=== PATIENT | male | born 1990 | race Caucasian/White ===

== ENCOUNTER 2019-03-04 22:40 | Emergency (ER) | payer SELFPAY ==
[2019-03-04 23:04] VITALS: BP 153/87
--- NOTE | 2019-03-04 23:25 | EDM.PDOC ---
ED HPI GENERAL MEDICAL PROBLEM - General Chief Complaint: Genitourinary Problem Stated Complaint: PT SPOKE TO NURSE Time Seen by Provider: 03/04/19 23:25 Source of Information: Reports: Patient - History of Present Illness INITIAL COMMENTS - FREE TEXT/NARRATIVE: HISTORY AND PHYSICAL: History of present illness: [ Patient presents with blood post ejaculation, is not necessarily have any pain associated however blood remains in urine for several episodes of urination post sexual activity is one patient notices ana rosa blood in the urine As a secondary complaint of a needle poke from a known drug user, he states he was staying out of an apartment in cleaning up the apartment in [place], there is a known drug abuser in the home and while cleaning a bathroom he was stuck with a needle, he was wondering if this may contribute to the blood in his urine. Hence we have added HIV and hepatitis testing Review of systems: As per history of present illness and below otherwise all systems reviewed and negative. Past medical history: As per history of present illness and as reviewed below otherwise noncontributory. Surgical history: As per history of present illness and as reviewed below otherwise noncontributory. Social history: No reported history of drug or alcohol abuse. Family history: As per history of present illness and as reviewed below otherwise noncontributory. Physical exam: HEENT: Atraumatic, normocephalic, pupils reactive, negative for conjunctival pallor or scleral icterus, mucous membranes moist, throat clear, neck supple, nontender, trachea midline. Lungs: Clear to auscultation, breath sounds equal bilaterally, chest nontender. Heart: S1S2, regular, negative for clicks, rubs, or JVD. Abdomen: Soft, nondistended, nontender. Negative for masses or hepatosplenomegaly. Negative for costovertebral tenderness. Pelvis: Stable nontender. Genitourinary: Deferred. Rectal: Deferred. Extremities: Atraumatic, negative for cords or calf pain. Neurovascular unremarkable. Neuro: Awake, alert, oriented. Cranial nerves II through XII unremarkable. Cerebellum unremarkable. Motor and sensory unremarkable throughout. Exam nonfocal. Diagnostics: [CBC BMP UA HIV and hepatitis panel ] Therapeutics: [Gram Rocephin IM Azithromycin ] gram by mouth Impression: [ hematuria ] Definitive disposition and diagnosis as appropriate pending reevaluation and review of above. - Related Data Allergies Allergy/AdvReac Type Severity Reaction Status Date / Time No Known Allergies Allergy Verified 03/04/19 22:41 Home Meds: Home Meds . [No Known Home Meds] 11/13/14 [History] Past Medical History - Past Health History Medical/Surgical History: Denies Medical/Surgical History Social & Family History - Family History Family Medical History: Noncontributory - Tobacco Use Smoking Status *Q: Current Every Day Smoker Years of Tobacco use: 10 Packs/Tins Daily: 1 - Recreational Drug Use Recreational Drug Use: No ED ROS GENERAL - Review of Systems Review Of Systems: See Below ED EXAM, GENERAL - Physical Exam Exam: See Below Course - Vital Signs Last Recorded V/S: Last Vital Signs Temp 97 F 03/04/19 22:40 Pulse 97 03/04/19 22:40 Resp 18 03/04/19 22:40 BP 153/87 H 03/04/19 22:40 Pulse Ox 96 03/04/19 22:40 - Orders/Labs/Meds Orders: Active Orders 24 hr Category Date Time Status CHLAMYDIA AND GONORRHEA BY TMA Stat Lab 03/04/19 22:55 Received HEPATITIS PANEL (4) [REF] Stat Lab 03/04/19 23:33 Received HIV12 AG/AB 4TH GEN [CHEM] Stat Lab 03/04/19 23:33 Received PSA DIAGNOSTIC [CHEM] Stat Lab 03/04/19 23:33 Received Labs: Laboratory Tests 03/04/19 03/04/19 03/04/19 Range/Units 22:55 23:33 23:33 WBC 12.50 H (4.0-11.0) K/uL RBC 5.50 (4.50-5.90) M/uL Hgb 15.7 (13.0-17.0) g/dL Hct 45.9 (38.0-50.0) % MCV 83.5 (80.0-98.0) fL MCH 28.5 (27.0-32.0) pg MCHC 34.2 (31.0-37.0) g/dL RDW Std Deviation 41.1 (28.0-62.0) fl RDW Coeff of Tammy 14 (11.0-15.0) % Plt Count 376 (150-400) K/uL MPV 9.00 (7.40-12.00) fL Neut % (Auto) 61.2 (48.0-80.0) % Lymph % (Auto) 26.2 (16.0-40.0) % Wolfe % (Auto) 7.0 (0.0-15.0) % Eos % (Auto) 5.1 (0.0-7.0) % Baso % (Auto) 0.5 (0.0-1.5) % Neut # (Auto) 7.7 H (1.4-5.7) K/uL Lymph # (Auto) 3.3 H (0.6-2.4) K/uL Wolfe # (Auto) 0.9 H (0.0-0.8) K/uL Eos # (Auto) 0.6 (0.0-0.7) K/uL Baso # (Auto) 0.1 (0.0-0.1) K/uL Nucleated RBC % 0.0 /100WBC Nucleated RBCs # 0 K/uL Sodium 139 (136-148) mmol/L Potassium 4.1 (3.5-5.1) mmol/L Chloride 103 (98-107) mmol/L Carbon Dioxide 28.9 (21.0-32.0) mmol/L BUN 12 (7.0-18.0) mg/dL Creatinine 1.0 (0.8-1.3) mg/dL Est Cr Clr Drug Dosing 124.29 mL/min Estimated GFR (MDRD) > 60.0 ml/min Glucose 119 H (74-106) mg/dL Calcium 9.3 (8.5-10.1) mg/dL Urine Color DARK YELLOW Urine Appearance CLOUDY Urine pH 6.0 (5.0-8.0) Ur Specific Kyle >= 1.030 (1.001-1.035) Urine Protein TRACE H (NEGATIVE) mg/dL Urine Glucose (UA) NEGATIVE (NEGATIVE) mg/dL Urine Ketones NEGATIVE (NEGATIVE) mg/dL Urine Occult Blood LARGE H (NEGATIVE) Urine Nitrite NEGATIVE (NEGATIVE) Urine Bilirubin NEGATIVE (NEGATIVE) Urine Urobilinogen 0.2 (<2.0) EU/dL Ur Leukocyte Esterase NEGATIVE (NEGATIVE) Urine RBC >100 (0-2/HPF) Urine WBC 1-2 (0-5/HPF) Ur Epithelial Cells RARE (NONE-FEW) Urine Bacteria 1+ H (NEGATIVE) Urine Mucus LIGHT (NONE-MOD) Meds: Medications Discontinued Medications Generic Name Dose Route Start Last Admin Trade Name eRna PRN Reason Stop Dose Admin Azithromycin 1,000 mg 03/04/19 23:39 03/04/19 23:47 Zithromax PO 03/04/19 23:40 1,000 mg NOW STA Administration Ceftriaxone Sodium 1 gm 03/04/19 23:39 03/04/19 23:48 Rocephin IM 03/04/19 23:40 1 gm ONETIME ONE Administration Lidocaine HCl Confirm 03/04/19 23:44 03/04/19 23:48 Xylocaine-Mpf 1% Administered 03/04/19 23:45 2.1 mls/hr Dose Administration 2 mls @ as directed .ROUTE .STK-MED ONE Departure - Departure Time of Disposition: 00:39 Disposition: Home, Self-Care 01 Condition: Good Clinical Impression: Hematuria - Discharge Information Referrals: PCP,None [Primary Care Provider] - Forms: ED Department Discharge Additional Instructions: Infectious labs are pending at this time and will need to be followed Return if symptoms persist or worsen or if new concerning symptoms develop Follow-up with urology, call phone number below to schedule appropriate follow- up [facility] - Urology [address] [place] [address] In the interim primary care remains a resource for interim care [facility] - Primary Care [address] [place] [address] The following information is given to patients seen in the emergency department who are being discharged to home. This information is to outline your options for follow-up care. We provide all patients seen in our emergency department with a follow-up referral. The need for follow-up, as well as the timing and circumstances, are variable depending upon the specifics of your emergency department visit. If you don't have a primary care physician on staff, we will provide you with a referral. We always advise you to contact your personal physician following an emergency department visit to inform them of the circumstance of the visit and for follow-up with them and/or the need for any referrals to a consulting specialist. The emergency department will also refer you to a specialist when appropriate. This referral assures that you have the opportunity for follow-up care with a specialist. All of these measure are taken in an effort to provide you with optimal care, which includes your follow-up. Under all circumstances we always encourage you to contact your private physician who remains a resource for coordinating your care. When calling for follow-up care, please make the office aware that this follow-up is from your recent emergency room visit. If for any reason you are refused follow-up, please contact the [facility] emergency department at and asked to speak to the emergency department charge nurse. - My Orders Last 24 Hours: My Active Orders 03/04/19 22:55 CHLAMYDIA AND GONORRHEA BY TMA Stat 03/04/19 23:33 HEPATITIS PANEL (4) [REF] Stat HIV12 AG/AB 4TH GEN [CHEM] Stat PSA DIAGNOSTIC [CHEM] Stat - Assessment/Plan Last 24 Hours: My Active Orders 03/04/19 22:55 CHLAMYDIA AND GONORRHEA BY TMA Stat 03/04/19 23:33 HEPATITIS PANEL (4) [REF] Stat HIV12 AG/AB 4TH GEN [CHEM] Stat PSA DIAGNOSTIC [CHEM] Stat
[2019-03-04] MEDS ORDERED: Azithromycin 250 MG Tab PO STA (23:39)
[2019-03-04] MEDS ORDERED: cefTRIAXone 1 GM Vial IM ONE (23:39)
[2019-03-04] MEDS ORDERED: Lidocaine 1% 2 ML ONE (23:44)
[2019-03-04 23:54] LABS: CHLORIDE,CL 103 mmol/L (98-107); SODIUM,NA 139 mmol/L (136-148)
--- NOTE | 2019-03-05 00:27 | US ---
INDICATION: Hematuria TECHNIQUE: Ultrasound renal bilateral. Villeda scale and color Doppler sonographic images were acquired of the kidneys and urinary bladder. COMPARISON: None FINDINGS: Right kidney: 11.3 3 cm. Normal echotexture and cortex. No masses, stones, or hydronephrosis. Left kidney: 13.0 cm. Normal echotexture and cortex. No masses, stones, or hydronephrosis. Bladder: Normal in caliber and appearance. Color Doppler images demonstrate bilateral ureteral jets. IMPRESSION: Normal renal ultrasound. Dictated by Donald Carrillo MD @ 03/05/2019 12:25:26 AM Dictated by: Donald Carrillo MD @ 03/05/2019 00:25:31 (Electronically Signed)
== END 2019-03-05 00:48 | disposition home or self-care (01) ==
LOC: MW.ED 22:40
DX: R31.9 Hematuria, unspecified (principal); F17.210 Nicotine dependence, cigarettes, uncomplicated
CPT/HCPCS: 36415; 76775; 80048; 81001; 84153; 85025; 87389; 87491; 87591; 96372; 99284; A9270; J0696; J2001; 80074

== ENCOUNTER 2019-06-04 21:08 | Emergency (ER) | payer SELFPAY ==
--- NOTE | 2019-06-04 21:24 | EDM.PDOC ---
ED HPI GENERAL MEDICAL PROBLEM - General Chief Complaint: Skin Complaint Stated Complaint: PT HANDS SWOLLEN Time Seen by Provider: 06/04/19 21:24 Source of Information: Reports: Patient History Limitations: Reports: No Limitations - History of Present Illness INITIAL COMMENTS - FREE TEXT/NARRATIVE: HISTORY AND PHYSICAL: History of present illness: Patient is a 28-year-old male presents to the ED with complaint of pain and swelling of his right middle finger and left pinky finger x 2 days. 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 Review of systems: As per history of present illness and below otherwise all systems reviewed and negative. Past medical history: As per history of present illness and as reviewed below otherwise noncontributory. Surgical history: As per history of present illness and as reviewed below otherwise noncontributory. Social history: No reported history of drug or alcohol abuse. Family history: As per history of present illness and as reviewed below otherwise noncontributory. Physical exam: General: Patient sitting comfortably in no acute distress and nontoxic appearing HEENT: Atraumatic, normocephalic, pupils reactive, negative for conjunctival pallor or scleral icterus, mucous membranes moist, throat clear, neck supple, nontender, trachea midline. No meningeal signs. Lungs: Clear to auscultation, breath sounds equal bilaterally, chest nontender. Heart: S1S2, regular, negative for clicks, rubs, or overt murmur. Abdomen: Soft, nondistended, nontender. Negative for masses or hepatosplenomegaly. Negative for costovertebral tenderness. No rigidity, rebound , guarding. Pelvis: Stable nontender. Genitourinary: Deferred. Rectal: Deferred. Extremities: Atraumatic, negative for cords or calf pain. Neurovascular unremarkable. Neuro: Awake, alert, oriented. Cranial nerves II through XII unremarkable. Cerebellum unremarkable. Motor and sensory unremarkable throughout. Exam nonfocal. Notes: Diagnostics: x-ray fingers Therapeutics: 30mg Toradol IM Prescriptions: Keflex Impression: Cellulitis finger Plan: Take antibiotic as instructed Follow up with primary care provider Return to ED as needed as discussed Definitive disposition and diagnosis as appropriate pending reevaluation and review of above. both hands Pain Score (Numeric/FACES): 10 - Related Data Allergies Allergy/AdvReac Type Severity Reaction Status Date / Time No Known Allergies Allergy Verified 03/04/19 22:41 Home Meds: Home Meds Diclofenac Sodium [Voltaren] 75 mg PO BIDMEALS 10 Days #20 tab.cr 06/04/19 [Rx] cephALEXin [Keflex] 500 mg PO TID 10 Days #30 cap 06/04/19 [Rx] Past Medical History - Past Health History Medical/Surgical History: Denies Medical/Surgical History - Past Surgical History GI Surgical History: Reports: Appendectomy Social & Family History - Family History Family Medical History: Noncontributory - Tobacco Use Smoking Status *Q: Current Every Day Smoker Years of Tobacco use: 15 Packs/Tins Daily: 0.5 - Recreational Drug Use Recreational Drug Use: No ED ROS GENERAL - Review of Systems Review Of Systems: ROS reveals no pertinent complaints other than HPI. ED EXAM, SKIN/RASH Exam: See Below (see dictation) Course - Vital Signs Last Recorded V/S: Last Vital Signs Temp 98.2 F 06/04/19 21:17 Pulse 78 06/04/19 21:17 Resp 16 06/04/19 21:17 BP 168/111 H 06/04/19 21:17 Pulse Ox 96 06/04/19 21:17 - Orders/Labs/Meds Meds: Medications Discontinued Medications Generic Name Dose Route Start Last Admin Trade Name Rena PRN Reason Stop Dose Admin Ketorolac Tromethamine 60 mg 06/04/19 21:55 06/04/19 22:13 Toradol IM 06/04/19 21:56 60 mg ONETIME ONE Administration Departure - Departure Time of Disposition: 22:08 Disposition: Home, Self-Care 01 Condition: Good Clinical Impression: Cellulitis of finger - Discharge Information Prescriptions: cephALEXin [Keflex] 500 mg PO TID 10 Days #30 cap Diclofenac Sodium [Voltaren] 75 mg PO BIDMEALS 10 Days #20 tab.cr Instructions: Cellulitis, Adult, [id number] Referrals: PCP,None [Primary Care Provider] - Forms: ED Department Discharge Additional Instructions: The following information is given to patients seen in the emergency department who are being discharged to home. This information is to outline your options for follow-up care. We provide all patients seen in our emergency department with a follow-up referral. The need for follow-up, as well as the timing and circumstances, are variable depending upon the specifics of your emergency department visit. If you don't have a primary care physician on staff, we will provide you with a referral. We always advise you to contact your personal physician following an emergency department visit to inform them of the circumstance of the visit and for follow-up with them and/or the need for any referrals to a consulting specialist. The emergency department will also refer you to a specialist when appropriate. This referral assures that you have the opportunity for follow-up care with a specialist. All of these measure are taken in an effort to provide you with optimal care, which includes your follow-up. Under all circumstances we always encourage you to contact your private physician who remains a resource for coordinating your care. When calling for follow-up care, please make the office aware that this follow-up is from your recent emergency room visit. If for any reason you are refused follow-up, please contact the Emergency Department at and asked to speak to the emergency department charge nurse. Primary Care [address] [place] [id number] [place] [address] Take antibiotic as instructed Follow up with primary care provider Return to ED as needed as discussed
--- NOTE | 2019-06-04 21:54 | CR ---
INDICATION: Left 3rd digit. Possible metal foreign body. TECHNIQUE: Finger radiographs 3 views COMPARISON: None FINDINGS: Bones: Alignment is normal. No acute fractures or aggressive bone lesions are identified. Joint spaces: The metacarpophalangeal and interphalangeal joints are normal in appearance. Soft tissues: Unremarkable. No radiopaque foreign bodies are noted. IMPRESSION: 1. Left 3rd digit, no radiopaque foreign body identified. Dictated by Flaco Martinez MD @ 06/04/2019 9:52:51 PM Dictated by: Flaco Martinez MD @ 06/04/2019 21:52:59 (Electronically Signed)
[2019-06-04] MEDS ORDERED: Ketorolac 60 MG/2 ML SDV IM ONE (21:55)
--- NOTE | 2019-06-04 21:56 | CR ---
INDICATION: Possible metal foreign body. Right 5th digit. TECHNIQUE: Finger radiographs 3 views COMPARISON: None FINDINGS: Bones: Alignment is normal. No acute fractures or aggressive bone lesions are identified. Joint spaces: The metacarpophalangeal and interphalangeal joints are normal in appearance. Soft tissues: Unremarkable. No radiopaque foreign bodies are noted. IMPRESSION: 1. Right 5th digit, no acute osseous injury. No foreign body identified. Dictated by Flaco Martinez MD @ 06/04/2019 9:55:02 PM Dictated by: Flaco Martinez MD @ 06/04/2019 21:55:07 (Electronically Signed)
[2019-06-04 23:16] VITALS: BP 163/90
== END 2019-06-04 22:29 | disposition home or self-care (01) ==
LOC: MW.ED 21:08
DX: L03.012 Cellulitis of left finger (principal); L03.011 Cellulitis of right finger; F17.210 Nicotine dependence, cigarettes, uncomplicated; Z90.49 Acquired absence of other specified parts of digestive tract
CPT/HCPCS: 73140; 96372; 99283; J1885

== ENCOUNTER 2019-07-10 10:59 | Emergency (ER) | payer BC ==
[2019-07-10 12:41] VITALS: PULSE 100
--- NOTE | 2019-07-10 13:07 | EDM.PDOC ---
ED HPI GENERAL MEDICAL PROBLEM - General Chief Complaint: Upper Extremity Injury/Pain Stated Complaint: LT ARM COMPLAINT Time Seen by Provider: 07/10/19 12:12 Source of Information: Reports: Patient History Limitations: Reports: No Limitations - History of Present Illness INITIAL COMMENTS - FREE TEXT/NARRATIVE: History of present illness: []Patient has a history of cellulitic infections of his right upper extremity. 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 He denies any fevers, chills but noticed redness over his left forearm. Review of systems: As per history of present illness and below otherwise all systems reviewed and negative. Past medical history: As per history of present illness and as reviewed below otherwise noncontributory. Surgical history: As per history of present illness and as reviewed below otherwise noncontributory. Social history: No reported history of drug or alcohol abuse. Family history: As per history of present illness and as reviewed below otherwise noncontributory. Physical exam: General: Well developed, well nourished in NAD HEENT: Atraumatic, normocephalic, pupils reactive, negative for conjunctival pallor or scleral icterus, mucous membranes moist, throat clear, neck supple, nontender, trachea midline. Lungs: Clear to auscultation, breath sounds equal bilaterally, chest nontender. Heart: S1S2, regular, negative for clicks, rubs, or JVD. Abdomen: NABS, Soft, nondistended, nontender. Negative for masses or hepatosplenomegaly. Negative for costovertebral tenderness. Pelvis: Stable nontender. Genitourinary: Deferred. Rectal: Deferred. Extremities: Patient has erythema and induration of the volar part of his distal forearm mild tenderness no fluctuance is no open lesions noted., negative for cords or calf pain. Neurovascular unremarkable. Neuro: Awake, alert, oriented. Cranial nerves II through XII unremarkable. Cerebellum unremarkable. Motor and sensory unremarkable throughout. Exam nonfocal. Skin:warm and dry Diagnostics: X-ray left forearm Therapeutics: None ED Course: sTable Impression: Cellulitis left forearm Prescriptions: Keflex Plan: Take meds as directed, follow up with your primary care physician, return to ER if symptoms worsen or change. Definitive disposition and diagnosis as appropriate pending reevaluation and review of above. Left Wrist Pain Score (Numeric/FACES): 4 - Related Data Allergies Allergy/AdvReac Type Severity Reaction Status Date / Time No Known Allergies Allergy Verified 07/10/19 12:37 Home Meds: Home Meds Cephalexin [Keflex] 500 mg PO TID #30 capsule 07/10/19 [Rx] Past Medical History - Past Health History Medical/Surgical History: Denies Medical/Surgical History - Infectious Disease History Infectious Disease History: Reports: None - Past Surgical History GI Surgical History: Reports: Appendectomy Social & Family History - Family History Family Medical History: Noncontributory - Tobacco Use Smoking Status *Q: Current Every Day Smoker Years of Tobacco use: 25 Packs/Tins Daily: 1 - Caffeine Use Caffeine Use: Reports: Coffee - Recreational Drug Use Recreational Drug Use: No Review of Systems - Review of Systems Review Of Systems: See Below ED EXAM, GENERAL - Physical Exam Exam: See Below Course - Vital Signs Last Recorded V/S: Last Vital Signs Temp 98 F 07/10/19 12:38 Pulse 100 07/10/19 12:38 Resp 16 07/10/19 12:38 BP 138/87 07/10/19 12:38 Pulse Ox 98 07/10/19 12:38 - Orders/Labs/Meds Orders: Active Orders 24 hr Category Date Time Status Forearm 2V Lt [CR] Stat Exams 07/10/19 12:42 Ordered Departure - Departure Time of Disposition: 13:05 Disposition: Home, Self-Care 01 Condition: Good Clinical Impression: Cellulitis of left forearm - Discharge Information *PRESCRIPTION DRUG MONITORING PROGRAM REVIEWED*: No *COPY OF PRESCRIPTION DRUG MONITORING REPORT IN PATIENT AISHWARYA: No Prescriptions: Cephalexin [Keflex] 500 mg PO TID #30 capsule Referrals: PCP,Unknown [Primary Care Provider] - Additional Instructions: The following information is given to patients seen in the emergency department who are being discharged to home. This information is to outline your options for follow-up care. We provide all patients seen in our emergency department with a follow-up referral. The need for follow-up, as well as the timing and circumstances, are variable depending upon the specifics of your emergency department visit. If you don't have a primary care physician on staff, we will provide you with a referral. We always advise you to contact your personal physician following an emergency department visit to inform them of the circumstance of the visit and for follow-up with them and/or the need for any referrals to a consulting specialist. The emergency department will also refer you to a specialist when appropriate. This referral assures that you have the opportunity for follow-up care with a specialist. All of these measure are taken in an effort to provide you with optimal care, which includes your follow-up. Under all circumstances we always encourage you to contact your private physician who remains a resource for coordinating your care. When calling for follow-up care, please make the office aware that this follow-up is from your recent emergency room visit. If for any reason you are refused follow-up, please contact the [facility] Emergency Department at and asked to speak to the emergency department charge nurse. Take meds as directed, follow up with your primary care physician, return to ER if symptoms worsen or change. [facility] Primary Care [address] [place] [id number] - My Orders Last 24 Hours: My Active Orders 07/10/19 12:42 Forearm 2V Lt [CR] Stat - Assessment/Plan Last 24 Hours: My Active Orders 07/10/19 12:42 Forearm 2V Lt [CR] Stat
[2019-07-10 13:28] VITALS: BP 148/85
--- NOTE | 2019-07-10 13:35 | CR ---
Left forearm: Two views of the left forearm were obtained. Comparison: No previous forearm study. Soft tissue swelling is seen within the forearm. No acute fracture or other bony abnormality is seen. Impression: Soft tissue swelling. No bony abnormality is appreciated on two- view left forearm study. Diagnostic code #3 [id number]
== END 2019-07-10 13:26 | disposition home or self-care (01) ==
LOC: MW.ED 10:59
DX: L03.114 Cellulitis of left upper limb (principal); F17.200 Nicotine dependence, unspecified, uncomplicated
CPT/HCPCS: 73090-26-LT; 73090-LT; 99283; 99283-25

== ENCOUNTER 2019-07-26 15:49 | Emergency (ER) | payer BC ==
--- NOTE | 2019-07-26 15:57 | EDM.PDOC ---
ED HPI GENERAL MEDICAL PROBLEM - General Chief Complaint: ENT Problem Stated Complaint: SORE THROAT Time Seen by Provider: 07/26/19 15:56 Source of Information: Reports: Patient - History of Present Illness INITIAL COMMENTS - FREE TEXT/NARRATIVE: HISTORY AND PHYSICAL: History of present illness: [Patient presents with sore throat for 2 days intermittent fever and myalgias/ general malaise no nausea vomiting chills sweats no cough Awful voice drooling or trismus ] Review of systems: As per history of present illness and below otherwise all systems reviewed and negative. Past medical history: As per history of present illness and as reviewed below otherwise noncontributory. Surgical history: As per history of present illness and as reviewed below otherwise noncontributory. Social history: No reported history of drug or alcohol abuse. Family history: As per history of present illness and as reviewed below otherwise noncontributory. Physical exam: HEENT: Atraumatic, normocephalic, pupils reactive, negative for conjunctival pallor or scleral icterus, mucous membranes moist, throat clear, neck supple, nontender, trachea midline. uttered erythema with exudates tonsils 3+ Lungs: Clear to auscultation, breath sounds equal bilaterally, chest nontender. Heart: S1S2, regular, negative for clicks, rubs, or JVD. Abdomen: Soft, nondistended, nontender. Negative for masses or hepatosplenomegaly. Negative for costovertebral tenderness. Pelvis: Stable nontender. Genitourinary: Deferred. Rectal: Deferred. Extremities: Atraumatic, negative for cords or calf pain. Neurovascular unremarkable. Neuro: Awake, alert, oriented. Cranial nerves II through XII unremarkable. Cerebellum unremarkable. Motor and sensory unremarkable throughout. Exam nonfocal. Diagnostics: [Rapid strep] Therapeutics: [Normal saline 1 g Rocephin Solu-Medrol 125 mg IV Viscous lidocaine ] Impression phARYNGITIS//tonsillitis ] Definitive disposition and diagnosis as appropriate pending reevaluation and review of above. Throat Pain Score (Numeric/FACES): 9 - Related Data Allergies Allergy/AdvReac Type Severity Reaction Status Date / Time No Known Allergies Allergy Verified 07/26/19 16:00 Home Meds: Home Meds . [No Known Home Meds] 07/26/19 [History] Past Medical History - Past Health History Medical/Surgical History: Denies Medical/Surgical History - Infectious Disease History Infectious Disease History: Reports: None - Past Surgical History GI Surgical History: Reports: Appendectomy Social & Family History - Family History Family Medical History: Noncontributory - Caffeine Use Caffeine Use: Reports: Coffee ED ROS GENERAL - Review of Systems Review Of Systems: See Below ED EXAM, GENERAL - Physical Exam Exam: See Below Course - Vital Signs Last Recorded V/S: Last Vital Signs Temp 100.1 F 07/26/19 16:01 Pulse 109 H 07/26/19 16:01 Resp 21 H 07/26/19 16:01 BP 151/80 H 07/26/19 16:01 Pulse Ox 100 07/26/19 16:01 - Orders/Labs/Meds Orders: Active Orders 24 hr Category Date Time Status Sodium Chloride 0.9% [Normal Saline] 1,000 ml Med 07/26/19 16:16 Active IV STAT cefTRIAXone [Rocephin in Dextrose,Iso-Osm 1 GM/50 ML] 1 Med 07/26/19 16:16 Active gm Premix Bag 1 bag IV ONETIME Medication Orders Ceftriaxone Sodium/Dextrose 1 (gm/ Premix) 50 mls @ 100 mls/hr IV ONETIME ONE Stop: 07/26/19 16:45 Sodium Chloride (Normal Saline) 1,000 mls @ 999 mls/hr IV STAT ONE Stop: 07/26/19 17:16 Meds: Medications Generic Name Dose Route Start Last Admin Trade Name Freq PRN Reason Stop Dose Admin Ceftriaxone Sodium/Dextrose 1 50 mls @ 100 mls/hr 07/26/19 16:16 gm/ Premix IV 07/26/19 16:45 ONETIME ONE Sodium Chloride 1,000 mls @ 999 mls/hr 07/26/19 16:16 Normal Saline IV 07/26/19 17:16 STAT ONE Discontinued Medications Generic Name Dose Route Start Last Admin Trade Name Freq PRN Reason Stop Dose Admin Lidocaine HCl 15 ml 07/26/19 16:16 Xylocaine 2% Viscous PO 07/26/19 16:17 ONETIME ONE Methylprednisolone Sodium Succinate 125 mg 07/26/19 16:16 Solu-Medrol IVPUSH 07/26/19 16:17 ONETIME ONE Departure - Departure Time of Disposition: 16:30 Disposition: Home, Self-Care 01 Condition: Good Clinical Impression: Tonsillitis - Discharge Information Referrals: PCP,None [Primary Care Provider] - Forms: ED Department Discharge Additional Instructions: Medication as prescribed Return if symptoms persist or worsen despite treatment Follow-up with primary care in 2 weeks [facility] - [facility] [address] [place] [id number] The following information is given to patients seen in the emergency department who are being discharged to home. This information is to outline your options for follow-up care. We provide all patients seen in our emergency department with a follow-up referral. The need for follow-up, as well as the timing and circumstances, are variable depending upon the specifics of your emergency department visit. If you don't have a primary care physician on staff, we will provide you with a referral. We always advise you to contact your personal physician following an emergency department visit to inform them of the circumstance of the visit and for follow-up with them and/or the need for any referrals to a consulting specialist. The emergency department will also refer you to a specialist when appropriate. This referral assures that you have the opportunity for follow-up care with a specialist. All of these measure are taken in an effort to provide you with optimal care, which includes your follow-up. Under all circumstances we always encourage you to contact your private physician who remains a resource for coordinating your care. When calling for follow-up care, please make the office aware that this follow-up is from your recent emergency room visit. If for any reason you are refused follow-up, please contact the [facility] emergency department at and asked to speak to the emergency department charge nurse. - My Orders Last 24 Hours: My Active Orders 07/26/19 16:16 Sodium Chloride 0.9% [Normal Saline] 1,000 ml IV STAT cefTRIAXone [Rocephin in Dextrose,Iso-Osm 1 GM/50 ML] 1 gm Premix Bag 1 bag IV ONETIME - Assessment/Plan Last 24 Hours: My Active Orders 07/26/19 16:16 Sodium Chloride 0.9% [Normal Saline] 1,000 ml IV STAT cefTRIAXone [Rocephin in Dextrose,Iso-Osm 1 GM/50 ML] 1 gm Premix Bag 1 bag IV ONETIME
[2019-07-26] MEDS ORDERED: Lidocaine 2% Viscous Solution 15 ML Cup PO ONE (16:16)
[2019-07-26] MEDS ORDERED: methylPREDNISolone Sodium Succinate 125 MG/2 ML SDV IVPUSH ONE (16:16)
[2019-07-26] MEDS ORDERED: cefTRIAXone 1 GM in Premix Bag 1 BAG IV ONE (16:16)
[2019-07-26] MEDS ORDERED: Sodium Chloride 0.9% 1,000 ML IV ONE (16:16)
[2019-07-26 17:32] VITALS: BP 146/78; PULSE 107
== END 2019-07-26 17:31 | disposition home or self-care (01) ==
LOC: MW.ED 15:49
DX: J02.9 Acute pharyngitis, unspecified (principal)
CPT/HCPCS: 87880; 96365; 96375; 99283; A9270; J0696; J2930; J7040

== ENCOUNTER 2019-12-26 08:45 | Emergency (ER) | payer BC ==
[2019-12-26] MEDS ORDERED: fentaNYL 50 MCG/ML SDV IVPUSH ONE (08:50)
[2019-12-26] MEDS ORDERED: Sodium Chloride 0.9% 2.5 ML Syringe FLUSH PRN (09:00)
[2019-12-26] MEDS ORDERED: Sodium Chloride 0.9% 10 ML Syringe FLUSH PRN (09:00)
--- NOTE | 2019-12-26 09:03 | EDM.PDOC ---
ED HPI GENERAL MEDICAL PROBLEM - General Chief Complaint: Drug or Alcohol Abuse Stated Complaint: OD BROUGHT IN VIA AMBULANCE Time Seen by Provider: 12/26/19 09:03 Source of Information: Reports: EMS History Limitations: Reports: Altered Mental Status - History of Present Illness INITIAL COMMENTS - FREE TEXT/NARRATIVE: This 29 year old male with known meth use was found in his garage this morning unresponsive and cold with dilated pupils according to the EMT's. He was given a total of 12mg of Narcan with no response. He was last seen normal last night. The patient was thrashing about on arrival to the ED. He was intubated with the aid of a GlideScope using a 8mm ET tube. See intubation note. I was not able to obtain any history from the patient due to his mental status and intubation. Onset: Today Duration: Other (unknown) - Related Data Allergies Allergy/AdvReac Type Severity Reaction Status Date / Time No Known Allergies Allergy Verified 07/26/19 16:00 Home Meds: Home Meds . [No Known Home Meds] 07/26/19 [History] Past Medical History - Past Health History Medical/Surgical History: Denies Medical/Surgical History - Infectious Disease History Infectious Disease History: Reports: None - Past Surgical History GI Surgical History: Reports: Appendectomy Social & Family History - Family History Family Medical History: Noncontributory - Caffeine Use Caffeine Use: Reports: Coffee ED ROS GENERAL - Review of Systems Review Of Systems: Unable To Obtain Reason Not Obtained: Unable to obtain due to AMS and intubation - Physical Exam Exam: See Below Exam Limited By: Altered Mental Status (and intubation) General Appearance: Obtunded Eye Exam: Bilateral Eye: EOMI (unable to check due to intubation), Normal Fundi , PERRL (dilated to 6.5mm and not reactive to light) Ears: Normal External Exam, Normal Canal, Hearing Grossly Normal, Normal TMs Nose: Normal Inspection, Normal Mucosa, No Blood Throat/Mouth: Normal Inspection, Normal Lips, Normal Oropharynx (except for secretions), Other (airway is compromised) Head Exam: Atraumatic, Normocephalic Neck: Normal Inspection, Supple (unable to access due to AMS and Intubation) Respiratory/Chest: Respiratory Distress, Decreased Breath Sounds (right base with rhonchi) Cardiovascular: Normal Peripheral Pulses, No Edema, No JVD, No Murmur, Tachycardia (132 by ECG) GI/Abdominal: Normal Bowel Sounds, Soft, No Distention, No Abnormal Bruit, No Mass (Male) Exam: Deferred Rectal (Males) Exam: Deferred Neuro Exam (Abbreviated): Other (intubated) DTR: 2+: Patella (R), Patella (L) Back Exam: Normal Inspection Extremities: Normal Inspection (but all limbs are cool) Psychiatric: Other (intubated) Skin Exam: Cool (cold), Cyanosis (of upper and lower limbs) Endotracheal Intubation - Endotracheal Intubation ET Intubation Indication: Airway Protection Preparation: Suction, BVM Set Up Airway Assessment: Profuse Secretions Pre-Oxygenation: Assisted with BVM, 100% FiO2 Anesthesia Meds: Etomidate (20mg), Fentanyl (50mcg), Midazolam, Propofol (50mg bolus followed by drip), Rocuronium (190mg), Succinylcholine (100mg) Placement: Orotracheal Cords Visualized: Yes ETT Size In mm: 8 (Done with aid of GlideScope using #3 blade) Number of Attempts: 1 Confirmed By: CO2 Indicator, Bilateral Breath Sounds, Chest Xray (ET tube 3.5cm above the nuria) Tube Secured By: By RT Endotracheal Intubation Comment: The patient tolerated the intubation well. Course - Vital Signs Text/Narrative:: I talked with Dr. Azul (ED physician) who had me talk with Dr. Moe ( music critic) at 9:00AM. He has been accepted in transfer as a direct admission to the ICU at [facility]. He will be airlifted via [place]. Departure - Departure Time of Disposition: 09:56 Disposition: DC/Tfer to Acute Hospital 02 Condition: Serious Clinical Impression: Carbon monoxide exposure AMS (altered mental status) Qualifiers: Altered mental status type: stupor Qualified Code(s): R40.1 - Stupor Acute drug overdose Qualifiers: Encounter type: initial encounter Injury intent: undetermined intent Qualified Code(s): T50.904A - Poisoning by unspecified drugs, medicaments and biological substances, undetermined, initial encounter - Discharge Information *PRESCRIPTION DRUG MONITORING PROGRAM REVIEWED*: Yes *COPY OF PRESCRIPTION DRUG MONITORING REPORT IN PATIENT AISHWARYA: Yes Referrals: PCP,None [Primary Care Provider] - Critical Care Note - Critical Care Note Total Time (mins): 40 (Critical patient which required my constant attention due to multiple organ systems)
[2019-12-26] MEDS ORDERED: Sodium Chloride 0.9% 1,000 ML IV ONE ×2 (09:05→09:40)
[2019-12-26] MEDS ORDERED: Etomidate 2 MG/ML 20 ML SDV IVPUSH ONE (09:09)
[2019-12-26] MEDS ORDERED: Succinylcholine 200 MG/10 ML MDV IV ONE (09:09)
[2019-12-26] MEDS ORDERED: Midazolam 5 MG/ML SDV IVPUSH ONE (09:14)
[2019-12-26] MEDS ORDERED: Rocuronium 50 MG/5 ML Vial IVPUSH ONE (09:23)
[2019-12-26 09:34] LABS: BLOOD UREA NITROGEN,BUN 24 mg/dL (7.0-18.0); CARBON DIOXIDE,CO2 19.1 mmol/L (21.0-32.0); CHLORIDE,CL 106 mmol/L (98-107); GLUCOSE RANDOM 106 mg/dL (74-106); POTASSIUM,K 4.1 mmol/L (3.5-5.1); SODIUM,NA 142 mmol/L (136-148)
[2019-12-26] MEDS ORDERED: Propofol 200 MG/20 ML SDV IVPUSH ONE (09:40)
--- NOTE | 2019-12-26 09:42 | CR ---
Chest: Portable view of the chest was obtained. Comparison: No prior chest x-rays available. Minimal increased density within the right upper chest is seen most likely representing atelectasis. Lungs otherwise are clear. Heart size and mediastinum are normal. Bony structures are unremarkable. Tip of endotracheal tube lies slightly above the clavicles. Impression: 1. Tip of endotracheal tube slightly above the clavicles. 2. Mild right upper lobe atelectasis. Diagnostic code #3 This report was dictated in MDT
[2019-12-26] MEDS ORDERED: propofoL 100 ML IV SCH (09:45)
[2019-12-26 10:04] VITALS: BP 147/84; PULSE 134
== END 2019-12-26 09:55 ==
LOC: MW.ED 08:48
DX: T50.904A Poisoning by unspecified drugs, medicaments and biological substances, undetermined, initial encounter (principal); R40.1 Stupor; Z77.098 Contact with and (suspected) exposure to other hazardous, chiefly nonmedicinal, chemicals
CPT/HCPCS: 31500; 36415; 51702; 71045; 80053; 80305; 81001; 82375; 83735; 84484; 85025; 93005; 96360; 99291; J0330; J2250; J2704; J3010; J3490; J7030; J7050

== ENCOUNTER 2020-07-08 10:47 | Emergency (ER) | payer BC ==
--- NOTE | 2020-07-08 11:04 | EDM.PDOC ---
ED HPI GENERAL MEDICAL PROBLEM - General Chief Complaint: Skin Complaint Stated Complaint: PIECE OF METAL IN THUMB Time Seen by Provider: 07/08/20 10:50 Source of Information: Reports: Patient History Limitations: Reports: No Limitations - History of Present Illness INITIAL COMMENTS - FREE TEXT/NARRATIVE: 29M no PMHx presents for concern for L thumb infection. Patient 1-week ago was assisting putting in a tin metal roof when he believes he got a speck of metal in his thumb. He has noted over the last week worsening swelling and pain of the thumb. He denies systemic symptoms of fever, sweats, N/V. Left Finger-Thumb Pain Score (Numeric/FACES): 10 - Related Data Allergies Allergy/AdvReac Type Severity Reaction Status Date / Time No Known Allergies Allergy Unverified 07/08/20 11:02 Home Meds: Home Meds Amoxicillin/Potassium Clav [Augmentin 875-125 Tablet] 1 each PO BID 7 Days #14 tablet 07/08/20 [Rx] oxyCODONE HCl/Acetaminophen [Percocet 5-325 mg Tablet] 1 each PO DAILY PRN #12 tablet 07/08/20 [Rx] Past Medical History - Past Health History Medical/Surgical History: Denies Medical/Surgical History Other Psychiatric History: Undetermined - Infectious Disease History Infectious Disease History: Reports: None - Past Surgical History GI Surgical History: Reports: Appendectomy Social & Family History - Family History Family Medical History: Noncontributory - Caffeine Use Caffeine Use: Reports: Coffee Review of Systems - Review of Systems Review Of Systems: Comprehensive ROS is negative, except as noted in HPI. ED EXAM, GENERAL - Physical Exam Exam: See Below Exam Limited By: No Limitations General Appearance: Alert, WD/WN, Other (uncomfortable appearing 2/2 pain) Throat/Mouth: Normal Voice, No Airway Compromise Head: Atraumatic, Normocephalic Respiratory/Chest: No Respiratory Distress, No Accessory Muscle Use Cardiovascular: Normal Peripheral Pulses Extremities: Other (large amount of swelling to L distal thumb, +TTP, +erythema, punctate wound without active drainage) Neurological: Alert Psychiatric: Normal Affect, Normal Mood Skin Exam: Warm, Intact, Normal Color ED TRAUMA EXTREMITY PROCEDURES - I&D Site: L palmar thumb (DIP) Skin Prep: Chlorhexidine (Hibiciens) Local Anesthesia: Lidocaine: 1% Plain Local Anesthetic Volume: 4cc, Other (L thumb digital block) Area Incised With: 11 Blade Drainage: Purulent, Bloody, Moderate Amount Probed to Break Up Loculations: Yes Complications: No Complication Description: Small amount of pus exiced; will d/c with antibiotics and return precautions Course - Vital Signs Last Recorded V/S: Last Vital Signs Temp 98.8 F 07/08/20 11:02 Pulse 88 07/08/20 11:02 Resp 16 07/08/20 11:02 BP 163/97 H 07/08/20 11:02 Pulse Ox 99 07/08/20 11:02 - Orders/Labs/Meds Orders: Active Orders 24 hr Category Date Time Status Vaccines to be Administered [RC] PER UNIT ROUTINE Care 07/08/20 11:06 Active Fingers Thumb Lt FA [CR] Stat Exams 07/08/20 11:05 Taken Meds: Medications Discontinued Medications Generic Name Dose Route Start Last Admin Trade Name Freq PRN Reason Stop Dose Admin Diphtheria/Tetanus/Acell Pertussis 0.5 ml 07/08/20 11:05 07/08/20 11:13 Adacel IM 07/08/20 11:06 Not Given .ONCE ONE Lidocaine HCl 10 ml 07/08/20 11:05 07/08/20 11:15 Xylocaine 1% INJECT 07/08/20 11:06 Not Given ONETIME ONE Lidocaine HCl 10 ml 07/08/20 11:14 07/08/20 11:22 Xylocaine-Mpf 1% INJECT 07/08/20 11:15 10 ml ONETIME ONE Administration Oxycodone/Acetaminophen 2 tab 07/08/20 11:05 07/08/20 11:23 Percocet 325-5 Mg PO 07/08/20 11:06 2 tab ONETIME ONE Administration - Re-Assessments/Exams Free Text/Narrative Re-Assessment/Exam: 07/08/20 11:14 Will get XR imaging to look for FB; will digital block thumb and I&D likely abscess Departure - Departure Time of Disposition: 12:15 Disposition: Home, Self-Care 01 Condition: Good Clinical Impression: Felon of digit - Discharge Information Prescriptions: Amoxicillin/Potassium Clav [Augmentin 875-125 Tablet] 1 each PO BID 7 Days #14 tablet oxyCODONE HCl/Acetaminophen [Percocet 5-325 mg Tablet] 1 each PO DAILY PRN #12 tablet PRN Reason: Pain Instructions: Skin Abscess Referrals: PCP,None [Primary Care Provider] - Forms: ED Department Discharge, ED Return to Work/School Form Additional Instructions: The following information is given to patients seen in the emergency department who are being discharged to home. This information is to outline your options for follow-up care. We provide all patients seen in our emergency department with a follow-up referral. The need for follow-up, as well as the timing and circumstances, are variable depending upon the specifics of your emergency department visit. If you don't have a primary care physician on staff, we will provide you with a referral. We always advise you to contact your personal physician following an emergency department visit to inform them of the circumstance of the visit and for follow-up with them and/or the need for any referrals to a consulting specialist. The emergency department will also refer you to a specialist when appropriate. This referral assures that you have the opportunity for follow-up care with a specialist. All of these measure are taken in an effort to provide you with optimal care, which includes your follow-up. Under all circumstances we always encourage you to contact your private physician who remains a resource for coordinating your care. When calling for follow-up care, please make the office aware that this follow-up is from your recent emergency room visit. If for any reason you are refused follow-up, please contact the [facility] Emergency Department at and asked to speak to the emergency department charge nurse. Please follow up with your primary care physician. If you do not have a primary care physician, see below: [facility] [address] [place] [id number] [facility] [address] [place] [id number] Sepsis Event Note (ED) - Focused Exam Vital Signs: Vital Signs Temp Pulse Resp BP Pulse Ox 07/08/20 11:02 98.8 F 88 16 163/97 H 99 - My Orders Last 24 Hours: My Active Orders 07/08/20 11:05 Fingers Thumb Lt FA [CR] Stat 07/08/20 11:06 Vaccines to be Administered [RC] PER UNIT ROUTINE - Assessment/Plan Last 24 Hours: My Active Orders 07/08/20 11:05 Fingers Thumb Lt FA [CR] Stat 07/08/20 11:06 Vaccines to be Administered [RC] PER UNIT ROUTINE
[2020-07-08] MEDS ORDERED: Lidocaine 1% 10 ML MDV INJECT ONE (11:05)
[2020-07-08] MEDS ORDERED: Acetaminophen/oxyCODONE 325-5 MG Tab PO ONE (11:05)
[2020-07-08] MEDS ORDERED: Diphtheria,Pertussis(Acell),Tetanus Vaccine 0.5 ML Syringe IM ONE (11:05)
--- NOTE | 2020-07-08 12:20 | CR ---
Indication: Possible metal foreign body, swelling Technique: Three views left thumb Comparison: None Findings: Bones: Alignment is normal. No fractures or bone lesions. Joint spaces: Unremarkable. Soft tissues: Soft tissue swelling of the thumb. Impression: Soft tissue swelling of the thumb. No acute fracture or radiopaque foreign body. Dictated by Marnie Hutchison MD @ Jul 08 2020 12:18PM Signed by Dr. Marnie Hutchison @ Jul 08 2020 12:18PM
[2020-07-08 12:45] VITALS: BP 139/85; PULSE 72
== END 2020-07-08 12:46 | disposition home or self-care (01) ==
LOC: MW.ED 10:47
DX: L03.012 Cellulitis of left finger (principal)
CPT/HCPCS: 26011; 73140; 99284; A9270; J2001; 10060; 64450; 99283

== ENCOUNTER 2020-12-23 12:55 | Emergency (ER) | payer BC, MEDICAID ==
[2020-12-23] MEDS ORDERED: Acetaminophen/HYDROcodone 325-5 MG Tab PO ONE (13:10)
[2020-12-23] MEDS ORDERED: amLODIPine 5 MG Tab PO ONE (13:11)
--- NOTE | 2020-12-23 13:12 | EDM.PDOC ---
ED HPI GENERAL MEDICAL PROBLEM - General Chief Complaint: Upper Extremity Injury/Pain Stated Complaint: RT HAND SWOLLEN Time Seen by Provider: 12/23/20 12:56 Source of Information: Reports: Patient History Limitations: Reports: No Limitations - History of Present Illness INITIAL COMMENTS - FREE TEXT/NARRATIVE: Patient is a 30-year-old male who presents today for right hand pain. Patient dates that he tripped and landed on his right hand outstretched. This happened about 2 days ago. Since that time the hand has been increasingly swelling. Patient has pain mostly when trying to make a closed fist. Patient denies any numbness to the hand or any other injuries from the fall. Patient also noted to have elevated blood pressure states that he has never taken any medicines for his blood pressure but denies any chest pain urinary problems or other complaints. right hand Pain Score (Numeric/FACES): 8 - Related Data Allergies Allergy/AdvReac Type Severity Reaction Status Date / Time No Known Allergies Allergy Verified 12/23/20 13:43 Home Meds: Home Meds Amoxicillin/Potassium Clav [Augmentin 875-125 Tablet] 1 each PO BID 7 Days #14 tablet 07/08/20 [Rx] oxyCODONE HCl/Acetaminophen [Percocet 5-325 mg Tablet] 1 each PO DAILY PRN #12 tablet 07/08/20 [Rx] Sulfamethoxazole/Trimethoprim [Bactrim Ds Tablet] 1 each PO Q6HR 5 Days #20 tablet 12/23/20 [Rx] cephALEXin [Keflex] 500 mg PO BID 5 Days #10 cap 12/23/20 [Rx] Past Medical History - Past Health History Medical/Surgical History: Denies Medical/Surgical History Other Psychiatric History: Undetermined - Infectious Disease History Infectious Disease History: Reports: None - Past Surgical History GI Surgical History: Reports: Appendectomy Social & Family History - Family History Family Medical History: No Pertinent Family History - Caffeine Use Caffeine Use: Reports: Coffee Review of Systems - Review of Systems Review Of Systems: See Below Constitutional: Reports: No Symptoms Eyes: Reports: No Symptoms Ears: Reports: No Symptoms Nose: Reports: No Symptoms Mouth/Throat: Reports: No Symptoms Respiratory: Reports: No Symptoms Cardiovascular: Reports: No Symptoms GI/Abdominal: Reports: No Symptoms Genitourinary: Reports: No Symptoms Musculoskeletal: Reports: Hand Pain Skin: Reports: No Symptoms Neurological: Reports: No Symptoms Psychiatric: Reports: No Symptoms ED EXAM, GENERAL - Physical Exam Exam: See Below Exam Limited By: Altered Mental Status General Appearance: Alert, WD/WN Respiratory/Chest: No Respiratory Distress, Lungs Clear, Normal Breath Sounds Cardiovascular: Normal Peripheral Pulses, Regular Rate, Rhythm Peripheral Pulses: 2+: Radial (L), Radial (R) GI/Abdominal: Normal Bowel Sounds, Soft, Non-Tender Extremities: Normal Inspection, Normal Range of Motion, Other (swelling to hand with with tendernesss to palm ) Neurological: Alert, Oriented, Normal Cognition, Normal Gait Course - Vital Signs Last Recorded V/S: Last Vital Signs Temp 99 F 12/23/20 13:00 Pulse 125 H 12/23/20 13:00 Resp 17 12/23/20 13:00 BP 208/92 H 12/23/20 13:53 Pulse Ox 100 12/23/20 13:00 - Orders/Labs/Meds Orders: Active Orders 24 hr Category Date Time Status UA W/JEANETTE RFLX IF INDICATED [URIN] Stat Lab 12/23/20 13:11 Ordered Labs: Laboratory Tests 12/23/20 12/23/20 Range/Units 13:22 13:22 WBC 19.25 H (4.0-11.0) K/uL RBC 4.70 (4.50-5.90) M/uL Hgb 13.9 (13.0-17.0) g/dL Hct 40.6 (38.0-50.0) % MCV 86.4 (80.0-98.0) fL MCH 29.6 (27.0-32.0) pg MCHC 34.2 (31.0-37.0) g/dL RDW Std Deviation 42.9 (28.0-62.0) fl RDW Coeff of Tammy 14 (11.0-15.0) % Plt Count 320 (150-400) K/uL MPV 9.20 (7.40-12.00) fL Neut % (Auto) 83.0 H (48.0-80.0) % Lymph % (Auto) 8.3 L (16.0-40.0) % [place] % (Auto) 8.1 (0.0-15.0) % Eos % (Auto) 0.5 (0.0-7.0) % Baso % (Auto) 0.1 (0.0-1.5) % Neut # (Auto) 16.0 H (1.4-5.7) K/uL Lymph # (Auto) 1.6 (0.6-2.4) K/uL [place] # (Auto) 1.6 H (0.0-0.8) K/uL Eos # (Auto) 0.1 (0.0-0.7) K/uL Baso # (Auto) 0.0 (0.0-0.1) K/uL Nucleated RBC % 0.0 /100WBC Nucleated RBCs # 0 K/uL Sodium 137 (136-148) mmol/L Potassium 3.7 (3.5-5.1) mmol/L Chloride 101 (98-107) mmol/L Carbon Dioxide 29.0 (21.0-32.0) mmol/L BUN 12 (7.0-18.0) mg/dL Creatinine 0.9 (0.8-1.3) mg/dL Est Cr Clr Drug Dosing 135.63 mL/min Estimated GFR (MDRD) > 60.0 ml/min Glucose 105 (74-106) mg/dL Calcium 8.6 (8.5-10.1) mg/dL Total Bilirubin 0.7 (0.2-1.0) mg/dL AST 18 (15-37) IU/L ALT 39 (14-63) IU/L Alkaline Phosphatase 92 (46-116) U/L Total Protein 7.6 (6.4-8.2) g/dL Albumin 3.5 (3.4-5.0) g/dL Globulin 4.1 H (2.6-4.0) g/dL Albumin/Globulin Ratio 0.9 (0.9-1.6) Meds: Medications Discontinued Medications Generic Name Dose Route Start Last Admin Trade Name Freq PRN Reason Stop Dose Admin Hydrocodone Bitart/Acetaminophen 1 tab 12/23/20 13:10 12/23/20 13:51 Acetaminophen/Hydrocodone 325-5 Mg Tab PO 12/23/20 13:11 1 tab ONETIME ONE Administration Amlodipine Besylate 5 mg 12/23/20 13:11 12/23/20 13:53 Amlodipine 5 Mg Tab PO 12/23/20 13:12 5 mg ONETIME ONE Administration Cephalexin 500 mg 12/23/20 14:38 Cephalexin 500 Mg Cap PO 12/23/20 14:39 ONETIME ONE Trimethoprim/Sulfamethoxazole 1 tab 12/23/20 14:38 Sulfamethoxazole/Trimethoprim 800-160 Mg Tab PO 12/23/20 14:39 ONETIME ONE - Re-Assessments/Exams Free Text/Narrative Re-Assessment/Exam: 12/23/20 14:39 [facility] x-ray reviewed no fractures. Patient has significant amount of swelling bedside sono was and did not show any pockets of pus need to be drained. Since patient has elevated white count hand is warm. Will start patient on some antibiotics and give strict return precautions. Patient also be started on blood pressure medication as well. Patient remains asymptomatic from his elevated blood pressure. Departure - Departure Time of Disposition: 14:40 Disposition: Home, Self-Care 01 Condition: Good Clinical Impression: Cellulitis of hand - Discharge Information *PRESCRIPTION DRUG MONITORING PROGRAM REVIEWED*: Not Applicable *COPY OF PRESCRIPTION DRUG MONITORING REPORT IN PATIENT AISHWARYA: Not Applicable Prescriptions: Sulfamethoxazole/Trimethoprim [Bactrim Ds Tablet] 1 each PO Q6HR 5 Days #20 tablet cephALEXin [Keflex] 500 mg PO BID 5 Days #10 cap Instructions: Cellulitis, Adult Referrals: PCP,None [Primary Care Provider] - Forms: ED Department Discharge Additional Instructions: The following information is given to patients seen in the emergency department who are being discharged to home. This information is to outline your options for follow-up care. We provide all patients seen in our emergency department w ith a follow-up referral. The need for follow-up, as well as the timing and circumstances, are variable depending upon the specifics of your emergency department visit. If you don't have a primary care physician on staff, we will provide you with a referral. We always advise you to contact your personal physician following an emergency department visit to inform them of the circumstance of the visit and for follow-up with them and/or the need for any referrals to a consulting specialist. The emergency department will also refer you to a specialist when appropriate. This referral assures that you have the opportunity for follow-up care with a specialist. All of these measure are taken in an effort to provide you with optimal care, which includes your follow-up. Under all circumstances we always encourage you to contact your private physician who remains a resource for coordinating your care. When calling for follow-up care, please make the office aware that this follow-up is from your recent emergency room visit. If for any reason you are refused follow-up, please contact the [facility] Emergency Department at and asked to speak to the emergency department charge nurse. Please follow up with your primary care physician. If you do not have a primary care physician, see below: [facility] [address] [place] [address] [facility] [address] [place] [address] Please continue to follow-up with your primary care physician. Please take antibiotics as prescribed as well as your blood pressure medication. If your hand continues to swell becomes more painful please return to the ED immediately. Sepsis Event Note (ED) - Focused Exam Vital Signs: Vital Signs Temp Pulse Resp BP BP Pulse Ox 12/23/20 13:53 208/92 H 12/23/20 13:00 99 F 125 H 17 208/92 H 100 - My Orders Last 24 Hours: My Active Orders 12/23/20 13:11 UA W/JEANETTE RFLX IF INDICATED [URIN] Stat - Assessment/Plan Last 24 Hours: My Active Orders 12/23/20 13:11 UA W/JEANTETE RFLX IF INDICATED [URIN] Stat Plan: Is a 30-year-old male who presents today for right hand pain after fall on outstretched hand. Patient has some swelling to the hand but good range of motion. Patient also has elevated blood pressure has not taken any meds for his blood pressure in the past few years. Will obtain labs to check kidney function and UA for protein. Patient be started on blood pressure meds also x- rays hand without any fractures.
--- NOTE | 2020-12-23 13:57 | CR ---
Indication: Trauma Technique: A total of three views of the right hand were acquired. Comparison: None Findings: Bones: Alignment is normal. No fractures or bone lesions. Joint spaces: Unremarkable. Soft tissues: Unremarkable. Impression: Normal plain film examination of the right hand. Dictated by Jose R Limon MD @ Dec 23 2020 1:54PM Signed by Dr. Jose R Limon @ Dec 23 2020 1:56PM
[2020-12-23 14:09] LABS: BLOOD UREA NITROGEN,BUN 12 mg/dL (7.0-18.0); CHLORIDE,CL 101 mmol/L (98-107); GLUCOSE RANDOM 105 mg/dL (74-106); POTASSIUM,K 3.7 mmol/L (3.5-5.1); SODIUM,NA 137 mmol/L (136-148)
[2020-12-23] MEDS ORDERED: Cephalexin 500 MG Cap PO ONE (14:38)
[2020-12-23] MEDS ORDERED: Sulfamethoxazole/Trimethoprim 800-160 MG Tab PO ONE (14:38)
[2020-12-23] MEDS ORDERED: Ibuprofen 800 MG Tab PO ONE (14:51)
[2020-12-23 15:20] VITALS: BP 177/110; PULSE 110
== END 2020-12-23 15:13 | disposition home or self-care (01) ==
LOC: MW.ED 12:55
DX: L03.113 Cellulitis of right upper limb (principal)
CPT/HCPCS: 36415; 73130; 80053; 85025; 99283; A9270

== ENCOUNTER 2020-12-27 11:43 | Inpatient (IN) | payer MEDICAID ==
[2020-12-27] MEDS ORDERED: Sodium Chloride 0.9% 1,000 ML IV ONE (12:11)
[2020-12-27] MEDS ORDERED: Morphine 4 MG/ML Syringe IVPUSH ONE ×2 (12:11→15:57)
[2020-12-27] MEDS ORDERED: VANCOmycin 1.5 GM/300 ML 1.5 GM in Premix Bag 1 BAG IV ONE (12:12)
--- NOTE | 2020-12-27 12:17 | PCM.EKG ---
#1 Interpretation EKG Date: 12/27/20 Time: 12:10 Rhythm: Other (sinus tachy) Rate (Beats/Min): 105 QT: Normal
--- NOTE | 2020-12-27 13:05 | EDM.PDOC ---
ED HPI GENERAL MEDICAL PROBLEM - General Chief Complaint: Upper Extremity Injury/Pain Stated Complaint: POSSIBLE INFECTION RT HAND Time Seen by Provider: 12/27/20 11:45 Source of Information: Reports: Patient History Limitations: Reports: No Limitations - History of Present Illness INITIAL COMMENTS - FREE TEXT/NARRATIVE: Patient is a 30-year-old male who presents today for right hand swelling. Patient was seen here few days ago when he tripped and fell on his hand has some swelling. He did x-rays show that no fracture. However patient now has warmth and swelling with a lump in the middle of his hand that could be an abscess he believes. Patient reports some chills but no fever no nausea vomiting no pain in other parts of his body. right hand Pain Score (Numeric/FACES): 7 - Related Data Allergies Allergy/AdvReac Type Severity Reaction Status Date / Time No Known Allergies Allergy Verified 12/27/20 11:56 Home Meds: Home Meds Amoxicillin/Potassium Clav [Augmentin 875-125 Tablet] 1 each PO BID 7 Days #14 tablet 07/08/20 [Rx] Acetaminophen/HYDROcodone [[place] 325-5 MG] 1 tab PO Q6H PRN 5 Days #20 tablet 12/23/20 [Rx] Sulfamethoxazole/Trimethoprim [Bactrim Ds Tablet] 1 each PO Q6HR 5 Days #20 tablet 12/23/20 [Rx] amLODIPine [Norvasc] 5 mg PO DAILY 30 Days #30 tab 12/23/20 [Rx] cephALEXin [Keflex] 500 mg PO BID 5 Days #10 cap 12/23/20 [Rx] Past Medical History - Past Health History Medical/Surgical History: Denies Medical/Surgical History Cardiovascular History: Reports: Hypertension Psychiatric History: Reports: Anxiety Other Psychiatric History: Undetermined - Infectious Disease History Infectious Disease History: Reports: Chicken Pox - Past Surgical History Other HEENT Surgeries/Procedures: Undetermined Other Cardiovascular Surgeries/Procedures: Undetermined Other Respiratory Surgeries/Procedures: Undetermined GI Surgical History: Reports: Appendectomy Other Male Surgeries/Procedures: Undetermined Other Endocrine Surgeries/Procedures: Undetermined Other Neurological Surgeries/Procedures: Undetermined Other Musculoskeletal Surgeries/Procedures:: Undetermined Social & Family History - Family History Family Medical History: No Pertinent Family History - Caffeine Use Caffeine Use: Reports: Coffee Review of Systems - Review of Systems Review Of Systems: See Below Constitutional: Reports: No Symptoms Eyes: Reports: No Symptoms Ears: Reports: No Symptoms Nose: Reports: No Symptoms Mouth/Throat: Reports: No Symptoms Respiratory: Reports: No Symptoms Cardiovascular: Reports: No Symptoms GI/Abdominal: Reports: No Symptoms Genitourinary: Reports: No Symptoms Musculoskeletal: Reports: Hand Pain Skin: Reports: No Symptoms Neurological: Reports: No Symptoms Psychiatric: Reports: No Symptoms ED EXAM, GENERAL - Physical Exam Exam: See Below Exam Limited By: No Limitations General Appearance: Alert, WD/WN Respiratory/Chest: No Respiratory Distress, Lungs Clear, Normal Breath Sounds Cardiovascular: Normal Peripheral Pulses, Regular Rate, Rhythm Peripheral Pulses: 2+: Radial (L), Radial (R) GI/Abdominal: Normal Bowel Sounds, Soft, Non-Tender Back Exam: Normal Inspection, Full Range of Motion Extremities: Joint Swelling, Other (swelling to right hand and lump possible abscess in middle of hand ). No: Non-Tender Neurological: Alert, Oriented ED TRAUMA EXTREMITY PROCEDURES - I&D Site: palm of hand Skin Prep: Providone-Iodine (Betadine) Area Incised With: 11 Blade Drainage: Purulent Probed to Break Up Loculations: Yes Packed With: 1/4 in. Iodoform Sterile Dressinx4(s) Complications: No Course - Vital Signs Last Recorded V/S: Last Vital Signs Temp 97.0 F 12/27/20 11:57 Pulse 87 12/27/20 14:12 Resp 18 12/27/20 14:12 BP 152/95 H 12/27/20 14:12 Pulse Ox 99 12/27/20 14:12 - Orders/Labs/Meds Orders: Active Orders 24 hr Category Date Time Status Patient Status [ADT] Routine ADT 12/27/20 15:36 Active Communication Order [RC] STAT Care 12/27/20 15:18 Active Verify Patient Consent Obtain [RC] ASDIRECTED Care 12/27/20 15:48 Active COVID-19/FLU A+B [MOLEC] Stat Lab 12/27/20 13:49 Ordered CULTURE BLOOD [BC] Stat Lab 12/27/20 12:32 Received CULTURE BLOOD [BC] Stat Lab 12/27/20 12:32 Received Blood Culture x2 Reflex Set [OM.PC] Stat Oth 12/27/20 12:11 Ordered Labs: Laboratory Tests 12/27/20 12/27/20 12/27/20 Range/Units 12:32 12:32 12:32 WBC 10.91 (4.0-11.0) K/uL RBC 4.66 (4.50-5.90) M/uL Hgb 13.7 (13.0-17.0) g/dL Hct 40.2 (38.0-50.0) % MCV 86.3 (80.0-98.0) fL MCH 29.4 (27.0-32.0) pg MCHC 34.1 (31.0-37.0) g/dL RDW Std Deviation 41.7 (28.0-62.0) fl RDW Coeff of Tammy 13 (11.0-15.0) % Plt Count 356 (150-400) K/uL MPV 9.00 (7.40-12.00) fL Neut % (Auto) 72.9 (48.0-80.0) % Lymph % (Auto) 16.4 (16.0-40.0) % [place] % (Auto) 7.4 (0.0-15.0) % Eos % (Auto) 3.0 (0.0-7.0) % Baso % (Auto) 0.3 (0.0-1.5) % Neut # (Auto) 8.0 H (1.4-5.7) K/uL Lymph # (Auto) 1.8 (0.6-2.4) K/uL [place] # (Auto) 0.8 (0.0-0.8) K/uL Eos # (Auto) 0.3 (0.0-0.7) K/uL Baso # (Auto) 0.0 (0.0-0.1) K/uL Nucleated RBC % 0.0 /100WBC Nucleated RBCs # 0 K/uL Lactate 1.7 (0.20-2.00) mmol/L Sodium 136 (136-148) mmol/L Potassium 3.5 (3.5-5.1) mmol/L Chloride 99 (98-107) mmol/L Carbon Dioxide 27.8 (21.0-32.0) mmol/L BUN 10 (7.0-18.0) mg/dL Creatinine 0.9 (0.8-1.3) mg/dL Est Cr Clr Drug Dosing 135.63 mL/min Estimated GFR (MDRD) > 60.0 ml/min Glucose 151 H (74-106) mg/dL Calcium 8.8 (8.5-10.1) mg/dL Total Bilirubin 0.3 (0.2-1.0) mg/dL AST 27 (15-37) IU/L ALT 97 H (14-63) IU/L Alkaline Phosphatase 164 H (46-116) U/L Creatine Kinase 22 L (26-308) U/L C-Reactive Protein 19.20 H (0.00-0.90) mg/dL Total Protein 7.5 (6.4-8.2) g/dL Albumin 2.9 L (3.4-5.0) g/dL Globulin 4.6 H (2.6-4.0) g/dL Albumin/Globulin Ratio 0.6 L (0.9-1.6) Meds: Medications Discontinued Medications Generic Name Dose Route Start Last Admin Trade Name Freq PRN Reason Stop Dose Admin Sodium Chloride 1,000 mls @ 999 mls/hr 12/27/20 12:11 12/27/20 13:49 Normal Saline IV 12/27/20 13:11 Infused .BOLUS ONE Infusion Vancomycin HCl 1.5 gm/ Premix 300 mls @ 200 mls/hr 12/27/20 12:12 12/27/20 14:00 IV 12/27/20 13:41 200 mls/hr ONETIME ONE Infusion Iopamidol 100 ml 12/27/20 14:10 12/27/20 14:13 Iopamidol 755 Mg/Ml 500 Ml Multipack Bottle IVPUSH 12/27/20 14:11 100 ml ONETIME STA Administration Lidocaine/Epinephrine 20 ml 12/27/20 15:11 12/27/20 15:40 Lidocaine 1% With Epinephrine 1:100,000 20 Ml Mdv SUBCUT 12/27/20 15:12 20 ml ONETIME ONE Administration Morphine Sulfate 4 mg 12/27/20 12:11 12/27/20 12:36 Morphine 4 Mg/Ml Syringe IVPUSH 12/27/20 12:12 4 mg ONETIME ONE Administration Departure - Departure Time of Disposition: 15:37 Disposition: Admitted As Inpatient 66 Condition: Good Clinical Impression: Abscess, hand - Discharge Information Referrals: PCP,None [Primary Care Provider] - Forms: ED Department Discharge Sepsis Event Note (ED) - Evaluation Sepsis Screening Result: Possible Sepsis Risk - Focused Exam Vital Signs: Vital Signs Temp Pulse Resp BP Pulse Ox 12/27/20 14:12 87 18 152/95 H 99 12/27/20 11:57 97.0 F 113 H 18 152/97 H 96 - My Orders Last 24 Hours: My Active Orders 12/27/20 12:11 Blood Culture x2 Reflex Set [OM.PC] Stat 12/27/20 12:32 CULTURE BLOOD [BC] Stat CULTURE BLOOD [BC] Stat 12/27/20 13:49 COVID-19/FLU A+B [MOLEC] Stat 12/27/20 15:18 Communication Order [RC] STAT 12/27/20 15:36 Patient Status [ADT] Routine 12/27/20 15:48 Verify Patient Consent Obtain [RC] ASDIRECTED - Assessment/Plan Last 24 Hours: My Active Orders 12/27/20 12:11 Blood Culture x2 Reflex Set [OM.PC] Stat 12/27/20 12:32 CULTURE BLOOD [BC] Stat CULTURE BLOOD [BC] Stat 12/27/20 13:49 COVID-19/FLU A+B [MOLEC] Stat 12/27/20 15:18 Communication Order [RC] STAT 12/27/20 15:36 Patient Status [ADT] Routine 12/27/20 15:48 Verify Patient Consent Obtain [RC] ASDIRECTED Plan: Patient is a 30-year-old male who presents today for increased right hand swelling. Possibly worsening cellulitis of the right hand with may be an abscess will obtain labs CT and reassess.
[2020-12-27 13:39] LABS: BLOOD UREA NITROGEN,BUN 10 mg/dL (7.0-18.0); CARBON DIOXIDE,CO2 27.8 mmol/L (21.0-32.0); CHLORIDE,CL 99 mmol/L (98-107); GLUCOSE RANDOM 151 mg/dL (74-106); POTASSIUM,K 3.5 mmol/L (3.5-5.1); SODIUM,NA 136 mmol/L (136-148)
[2020-12-27] MEDS ORDERED: Iopamidol 755 MG/ML 500 ML Multipack Bottle IVPUSH STA (14:10)
--- NOTE | 2020-12-27 14:35 | CT ---
INDICATION: Pain and swelling of the right hand. COMPARISON: Plain film 23 December 2020. TECHNIQUE: Multidetector images right hand with 100 mL Isovue-370 IV contrast. Axial, coronal and sagittal reformats. FINDINGS: Broad lentiform roughly 6.4 by 1.7 cm nonenhancing fluid attenuation focus apparently in the epidermis at the palmar margin of the hand. Disruption through the underlying dermis over a diameter of roughly 14 mm leads to infiltrating appearing peripherally enhancing edema or fluid tracking under the dermis superficial to presumed palmaris and palmar aponeurosis. This extends craniocaudal length of 4.5 cm and a depth of roughly 1 cm and greatest width of approximately 3 cm. No definite extension into the carpal tunnel. No tenosynovitis of the flexor tendons. Physiologic fluid in the wrist joint mostly in the pisiform recess. Diffuse subcutaneous edema. No radiopaque foreign body. No soft tissue gas. IMPRESSION: Large apparent epidermal bulla extending through or perhaps arising from a defect in the dermis communicating with a moderate-sized infiltrating subcutaneous presumed abscess. Prominent surrounding cellulitis. Please note that all CT scans at this facility use dose modulation, iterative reconstruction, and/or weight-based dosing when appropriate to reduce radiation dose to as low as reasonably achievable. Dictated by Barry Pearce MD @ Dec 27 2020 2:22PM Signed by Dr. Barry Pearce @ Dec 27 2020 2:33PM
[2020-12-27] MEDS ORDERED: Lidocaine 1% with EPINEPHrine 1:100,000 20 ML MDV SUBCUT ONE (15:11)
--- NOTE | 2020-12-27 16:45 | PCM.HP.2 ---
H&P History of Present Illness - General Date of Service: 12/27/20 Admit Problem/Dx: Admission Diagnosis/Problem Admission Diagnosis/Problem Abscess of hand - History of Present Illness Initial Comments - Free Text/Narative: 30-year-old male with past medical history of hypertension, admitted to the medical floor for cellulitis of the right hand. Patient presented to the ED with left hand tenderness, pain, inflammation and swelling. Patient states that roughly 1 week ago he was running and fell onto the concrete ground with an outstretched hand. Patient denies any signs of trauma, infection, swelling post hand injury. Patient states in the last 2 days he has noticed that his hand has gotten significantly worse with increased swelling, increased pain, decreased movement noted throughout the wrist and the fingers. Patient also states yesterday evening he had severe chills but no fever. Patient denies losing strength or sensation in the hand or the fingertips. CT hand impression, large apparent epidermal bullous lesion through defect and verrucous communicating with moderate size infiltrating subcutaneous abscess. Prominent surrounding cellulitis. Diffuse subcutaneous edema no infiltration into carpal tunnel. No tenosynovitis of the tendons. White blood cell count 10.9, lactate 1.7, CRP 19.2 I&D performed in the ER emergency department patient to be admitted to the medical floor for IV antibiotics. Case discussed with Dr. Delgado from general surgery, recommendation made that if patient's hand condition did not improve with I&D and IV antibiotics, patient should be referred to hand surgeon. right hand Pain Score (Numeric/FACES): 7 - Related Data Allergies/Adverse Reactions: Allergies Allergy/AdvReac Type Severity Reaction Status Date / Time No Known Allergies Allergy Verified 12/27/20 11:56 Home Medications: Home Meds Amoxicillin/Potassium Clav [Augmentin 875-125 Tablet] 1 each PO BID 7 Days #14 tablet 07/08/20 [Rx] Acetaminophen/HYDROcodone [[place] 325-5 MG] 1 tab PO Q6H PRN 5 Days #20 tablet 12/23/20 [Rx] Sulfamethoxazole/Trimethoprim [Bactrim Ds Tablet] 1 each PO Q6HR 5 Days #20 tablet 12/23/20 [Rx] amLODIPine [Norvasc] 5 mg PO DAILY 30 Days #30 tab 12/23/20 [Rx] cephALEXin [Keflex] 500 mg PO BID 5 Days #10 cap 12/23/20 [Rx] Past Medical History - Past Health History Medical/Surgical History: Denies Medical/Surgical History Cardiovascular History: Reports: Hypertension Psychiatric History: Reports: Anxiety Other Psychiatric History: Undetermined - Infectious Disease History Infectious Disease History: Reports: Chicken Pox - Past Surgical History Other HEENT Surgeries/Procedures: Undetermined Other Cardiovascular Surgeries/Procedures: Undetermined Other Respiratory Surgeries/Procedures: Undetermined GI Surgical History: Reports: Appendectomy Other Male Surgeries/Procedures: Undetermined Other Endocrine Surgeries/Procedures: Undetermined Other Neurological Surgeries/Procedures: Undetermined Other Musculoskeletal Surgeries/Procedures:: Undetermined Social & Family History - Family History Family Medical History: No Pertinent Family History - Caffeine Use Caffeine Use: Reports: Coffee H&P Review of Systems - Review of Systems: Review Of Systems: See Below General: Denies: Fever, Chills Pulmonary: Denies: Shortness of Breath, Wheezing Cardiovascular: Denies: Chest Pain, Palpitations Gastrointestinal: Denies: Abdominal Pain, Nausea, Vomiting Musculoskeletal: Reports: Hand Pain (mild right hand pain). Denies: Arm Pain Skin: Reports: Erythema (right hand) Neurological: Denies: Confusion Exam - Exam Exam: See Below - Vital Signs Vital Signs: Last Vital Signs Temp 97.0 F 12/27/20 11:57 Pulse 87 12/27/20 14:12 Resp 18 12/27/20 14:12 BP 152/95 H 12/27/20 14:12 Pulse Ox 99 12/27/20 14:12 Weight: 240 lb - Exam General: Alert, Oriented Lungs: Clear to Auscultation, Normal Respiratory Effort Cardiovascular: Regular Rate, Regular Rhythm GI/Abdominal Exam: Normal Bowel Sounds, Soft, Non-Tender Extremities: No Pedal Edema Skin: Wound, Incision (right hand post I&D. Hand is currently wrapped up with gauze and bandage. No purulent drainage noted from the bandage) Neurological: Sensation Intact Neuro Extensive - Mental Status: Alert, Oriented x3 - Patient Data Lab Results Last 24 hrs: Laboratory Results - last 24 hr 12/27/20 12/27/20 12/27/20 Range/Units 12:32 12:32 12:32 WBC 10.91 (4.0-11.0) K/uL RBC 4.66 (4.50-5.90) M/uL Hgb 13.7 (13.0-17.0) g/dL Hct 40.2 (38.0-50.0) % MCV 86.3 (80.0-98.0) fL MCH 29.4 (27.0-32.0) pg MCHC 34.1 (31.0-37.0) g/dL RDW Std Deviation 41.7 (28.0-62.0) fl RDW Coeff of Tammy 13 (11.0-15.0) % Plt Count 356 (150-400) K/uL MPV 9.00 (7.40-12.00) fL Neut % (Auto) 72.9 (48.0-80.0) % Lymph % (Auto) 16.4 (16.0-40.0) % [place] % (Auto) 7.4 (0.0-15.0) % Eos % (Auto) 3.0 (0.0-7.0) % Baso % (Auto) 0.3 (0.0-1.5) % Neut # (Auto) 8.0 H (1.4-5.7) K/uL Lymph # (Auto) 1.8 (0.6-2.4) K/uL [place] # (Auto) 0.8 (0.0-0.8) K/uL Eos # (Auto) 0.3 (0.0-0.7) K/uL Baso # (Auto) 0.0 (0.0-0.1) K/uL Nucleated RBC % 0.0 /100WBC Nucleated RBCs # 0 K/uL Lactate 1.7 (0.20-2.00) mmol/L Sodium 136 (136-148) mmol/L Potassium 3.5 (3.5-5.1) mmol/L Chloride 99 (98-107) mmol/L Carbon Dioxide 27.8 (21.0-32.0) mmol/L BUN 10 (7.0-18.0) mg/dL Creatinine 0.9 (0.8-1.3) mg/dL Est Cr Clr Drug Dosing 135.63 mL/min Estimated GFR (MDRD) > 60.0 ml/min Glucose 151 H (74-106) mg/dL Calcium 8.8 (8.5-10.1) mg/dL Total Bilirubin 0.3 (0.2-1.0) mg/dL AST 27 (15-37) IU/L ALT 97 H (14-63) IU/L Alkaline Phosphatase 164 H (46-116) U/L Creatine Kinase 22 L (26-308) U/L C-Reactive Protein 19.20 H (0.00-0.90) mg/dL Total Protein 7.5 (6.4-8.2) g/dL Albumin 2.9 L (3.4-5.0) g/dL Globulin 4.6 H (2.6-4.0) g/dL Albumin/Globulin Ratio 0.6 L (0.9-1.6) Result Diagrams: 12/27/20 12:32 12/27/20 12:32 Sepsis Event Note - Evaluation Sepsis Screening Result: Possible Sepsis Risk - Focused Exam Vital Signs: Vital Signs Temp Pulse Resp BP Pulse Ox 12/27/20 14:12 87 18 152/95 H 99 12/27/20 11:57 97.0 F 113 H 18 152/97 H 96 - Problem List (1) Hypertension SNOMED Code(s): 44043249 ICD Code: I10 - ESSENTIAL (PRIMARY) HYPERTENSION Status: Acute Current Visit: Yes (2) Abscess, hand SNOMED Code(s): 2685858 ICD Code: L02.519 - CUTANEOUS ABSCESS OF UNSPECIFIED HAND Status: Acute Current Visit: Yes (3) Cellulitis of hand SNOMED Code(s): 44039955 ICD Code: L03.119 - CELLULITIS OF UNSPECIFIED PART OF LIMB Status: Acute Current Visit: No Problem List Initiated/Reviewed/Updated: Yes Orders Last 24hrs: Active Orders 24 hr Category Date Time Status Patient Status [ADT] Routine ADT 12/27/20 15:36 Active Communication Order [RC] STAT Care 12/27/20 15:18 Active Verify Patient Consent Obtain [RC] ASDIRECTED Care 12/27/20 15:48 Active COVID-19/FLU A+B [MOLEC] Stat Lab 12/27/20 16:00 Received CULTURE BLOOD [BC] Stat Lab 12/27/20 12:32 Received CULTURE BLOOD [BC] Stat Lab 12/27/20 12:32 Received Blood Culture x2 Reflex Set [OM.PC] Stat Oth 12/27/20 12:11 Ordered Assessment/Plan Comment:: Cellulitis right hand-I&D performed in the ED. Will admit patient for IV antibiotics, vancomycin and Zosyn. A.m. labs, Blood cultures pending, CT hand shows large apparent epidermal bullous lesion through defect and verrucous communicating with moderate size infiltrating subcutaneous abscess. Prominent surrounding cellulitis. Diffuse subcutaneous edema no infiltration into carpal tunnel. Lovenox DVT prophylaxis. Regular diet. Tylenol for pain, will increase pain medication if necessary.
[2020-12-27 16:58] LABS: CORONAVIRUS COVID-19 NAA NEGATIVE (NEGATIVE); INFLUENZA A NAA NEGATIVE (NEGATIVE); INFLUENZA B NAA NEGATIVE (NEGATIVE)
[2020-12-27] MEDS: Piperacillin/Tazobactam 3.375 GM in Sodium Chloride 0.9% 50 ML IV SCH ×2 (18:58→23:55)
[2020-12-27] MEDS: Acetaminophen 325 MG Tab PO PRN (20:34)
[2020-12-28] MEDS: VANCOmycin 1.5 GM/300 ML 1.5 GM in Premix Bag 1 BAG IV SCH ×4 (02:30→20:06)
[2020-12-28] MEDS: Acetaminophen 325 MG Tab PO PRN ×2 (02:36→07:43)
[2020-12-28] MEDS: Piperacillin/Tazobactam 3.375 GM in Sodium Chloride 0.9% 50 ML IV SCH ×3 (05:21→17:16)
[2020-12-28 06:02] LABS: BLOOD UREA NITROGEN,BUN 10 mg/dL (7.0-18.0); CARBON DIOXIDE,CO2 27.4 mmol/L (21.0-32.0); CHLORIDE,CL 103 mmol/L (98-107); GLUCOSE RANDOM 112 mg/dL (74-106); POTASSIUM,K 4.2 mmol/L (3.5-5.1); SODIUM,NA 139 mmol/L (136-148)
[2020-12-28] MEDS ORDERED: Morphine 2 MG/ML SYRINGE IVPUSH ONE (10:00)
--- NOTE | 2020-12-28 11:11 | PCM.PN ---
- General Info Date of Service: 12/28/20 Subjective Update: Patient states significant improvement of the right hand overnight. Patient states that today - Review of Systems General: Denies: Fever, Chills Pulmonary: Denies: Shortness of Breath Cardiovascular: Denies: Chest Pain Gastrointestinal: Denies: Abdominal Pain, Nausea Neurological: Denies: Confusion, Dizziness Psychiatric: Denies: Confusion - Patient Data Vitals - Most Recent: Last Vital Signs Temp 97.3 F 12/28/20 07:05 Pulse 82 12/28/20 07:05 Resp 14 12/28/20 07:05 BP 155/83 H 12/28/20 07:05 Pulse Ox 97 12/28/20 07:05 Weight - Most Recent: 239 lb 7 oz I&O - Last 24 Hours: Intake & Output 12/27/20 12/28/20 12/28/20 22:59 06:59 14:59 Intake Total 1650 Output Total 1000 Balance 650 Lab Results Last 24 Hours: Laboratory Results - last 24 hr 12/27/20 12/27/20 12/27/20 Range/Units 12:32 12:32 12:32 WBC 10.91 (4.0-11.0) K/uL RBC 4.66 (4.50-5.90) M/uL Hgb 13.7 (13.0-17.0) g/dL Hct 40.2 (38.0-50.0) % MCV 86.3 (80.0-98.0) fL MCH 29.4 (27.0-32.0) pg MCHC 34.1 (31.0-37.0) g/dL RDW Std Deviation 41.7 (28.0-62.0) fl RDW Coeff of Tammy 13 (11.0-15.0) % Plt Count 356 (150-400) K/uL MPV 9.00 (7.40-12.00) fL Neut % (Auto) 72.9 (48.0-80.0) % Lymph % (Auto) 16.4 (16.0-40.0) % [place] % (Auto) 7.4 (0.0-15.0) % Eos % (Auto) 3.0 (0.0-7.0) % Baso % (Auto) 0.3 (0.0-1.5) % Neut # (Auto) 8.0 H (1.4-5.7) K/uL Lymph # (Auto) 1.8 (0.6-2.4) K/uL [place] # (Auto) 0.8 (0.0-0.8) K/uL Eos # (Auto) 0.3 (0.0-0.7) K/uL Baso # (Auto) 0.0 (0.0-0.1) K/uL Nucleated RBC % 0.0 /100WBC Nucleated RBCs # 0 K/uL Lactate 1.7 (0.20-2.00) mmol/L Sodium 136 (136-148) mmol/L Potassium 3.5 (3.5-5.1) mmol/L Chloride 99 (98-107) mmol/L Carbon Dioxide 27.8 (21.0-32.0) mmol/L BUN 10 (7.0-18.0) mg/dL Creatinine 0.9 (0.8-1.3) mg/dL Est Cr Clr Drug Dosing 135.63 mL/min Estimated GFR (MDRD) > 60.0 ml/min Glucose 151 H (74-106) mg/dL Calcium 8.8 (8.5-10.1) mg/dL Total Bilirubin 0.3 (0.2-1.0) mg/dL AST 27 (15-37) IU/L ALT 97 H (14-63) IU/L Alkaline Phosphatase 164 H (46-116) U/L Creatine Kinase 22 L (26-308) U/L C-Reactive Protein 19.20 H (0.00-0.90) mg/dL Total Protein 7.5 (6.4-8.2) g/dL Albumin 2.9 L (3.4-5.0) g/dL Globulin 4.6 H (2.6-4.0) g/dL Albumin/Globulin Ratio 0.6 L (0.9-1.6) Influenza Type A RNA (NEGATIVE) Influenza Type B RNA (NEGATIVE) SARS-CoV-2 RNA ([place]) (NEGATIVE) 12/27/20 12/28/20 12/28/20 Range/Units 16:00 04:40 04:40 WBC 10.32 (4.0-11.0) K/uL RBC 4.68 (4.50-5.90) M/uL Hgb 13.4 (13.0-17.0) g/dL Hct 40.5 (38.0-50.0) % MCV 86.5 (80.0-98.0) fL MCH 28.6 (27.0-32.0) pg MCHC 33.1 (31.0-37.0) g/dL RDW Std Deviation 41.7 (28.0-62.0) fl RDW Coeff of Tammy 13 (11.0-15.0) % Plt Count 371 (150-400) K/uL MPV 9.00 (7.40-12.00) fL Neut % (Auto) 57.1 (48.0-80.0) % Lymph % (Auto) 26.4 (16.0-40.0) % [place] % (Auto) 10.9 (0.0-15.0) % Eos % (Auto) 4.9 (0.0-7.0) % Baso % (Auto) 0.7 (0.0-1.5) % Neut # (Auto) 5.9 H (1.4-5.7) K/uL Lymph # (Auto) 2.7 H (0.6-2.4) K/uL [place] # (Auto) 1.1 H (0.0-0.8) K/uL Eos # (Auto) 0.5 (0.0-0.7) K/uL Baso # (Auto) 0.1 (0.0-0.1) K/uL Nucleated RBC % 0.0 /100WBC Nucleated RBCs # 0 K/uL Lactate (0.20-2.00) mmol/L Sodium 139 (136-148) mmol/L Potassium 4.2 (3.5-5.1) mmol/L Chloride 103 (98-107) mmol/L Carbon Dioxide 27.4 (21.0-32.0) mmol/L BUN 10 (7.0-18.0) mg/dL Creatinine 0.8 (0.8-1.3) mg/dL Est Cr Clr Drug Dosing 152.59 mL/min Estimated GFR (MDRD) > 60.0 ml/min Glucose 112 H (74-106) mg/dL Calcium 8.6 (8.5-10.1) mg/dL Total Bilirubin (0.2-1.0) mg/dL AST (15-37) IU/L ALT (14-63) IU/L Alkaline Phosphatase (46-116) U/L Creatine Kinase (26-308) U/L C-Reactive Protein (0.00-0.90) mg/dL Total Protein (6.4-8.2) g/dL Albumin (3.4-5.0) g/dL Globulin (2.6-4.0) g/dL Albumin/Globulin Ratio (0.9-1.6) Influenza Type A RNA NEGATIVE (NEGATIVE) Influenza Type B RNA NEGATIVE (NEGATIVE) SARS-CoV-2 RNA ([place]) NEGATIVE (NEGATIVE) Med Orders - Current: Current Medications Acetaminophen (Acetaminophen 325 Mg Tab) 650 mg PO Q4H PRN PRN Reason: Pain/Fever Last Admin: 12/28/20 07:43 Dose: 650 mg Documented by: Hydrocodone Bitart/Acetaminophen (Acetaminophen/Hydrocodone 325-5 Mg Tab) 1 tab PO Q6H PRN PRN Reason: Pain (severe 7-10) Piperacillin Sod/Tazobactam (Sod 3.375 gm/ Sodium Chloride) 50 mls @ 100 mls/hr IV Q6H [facility] Last Admin: 12/28/20 05:21 Dose: 100 mls/hr Documented by: Vancomycin HCl 1.5 gm/ Premix 300 mls @ 200 mls/hr IV Q8H [facility] Last Admin: 12/28/20 09:57 Dose: 200 mls/hr Documented by: Vancomycin HCl (Pharmacy To Dose - Vancomycin) 1 dose .XX ASDIRECTED [facility] Discontinued Medications Sodium Chloride (Normal Saline) 1,000 mls @ 999 mls/hr IV .BOLUS ONE Stop: 12/27/20 13:11 Last Infusion: 12/27/20 13:49 Dose: Infused Documented by: Vancomycin HCl 1.5 gm/ Premix 300 mls @ 200 mls/hr IV ONETIME ONE Stop: 12/27/20 13:41 Last Infusion: 12/27/20 14:00 Dose: 200 mls/hr Documented by: Iopamidol (Iopamidol 755 Mg/Ml 500 Ml Multipack Bottle) 100 ml IVPUSH ONETIME STA Stop: 12/27/20 14:11 Last Admin: 12/27/20 14:13 Dose: 100 ml Documented by: Lidocaine/Epinephrine (Lidocaine 1% With Epinephrine 1:100,000 20 Ml Mdv) 20 ml SUBCUT ONETIME ONE Stop: 12/27/20 15:12 Last Admin: 12/27/20 15:40 Dose: 20 ml Documented by: Morphine Sulfate (Morphine 4 Mg/Ml Syringe) 4 mg IVPUSH ONETIME ONE Stop: 12/27/20 12:12 Last Admin: 12/27/20 12:36 Dose: 4 mg Documented by: Morphine Sulfate (Morphine 4 Mg/Ml Syringe) 4 mg IVPUSH ONETIME ONE Stop: 12/27/20 15:58 Last Admin: 12/27/20 16:05 Dose: 4 mg Documented by: Morphine Sulfate (Morphine 2 Mg/Ml Syringe) 2 mg IVPUSH ONETIME ONE Stop: 12/28/20 10:01 Last Admin: 12/28/20 10:07 Dose: 2 mg Documented by: - Exam General: Alert, Oriented Lungs: Clear to Auscultation, Normal Respiratory Effort Cardiovascular: Regular Rate, Regular Rhythm GI/Abdominal Exam: Soft, Non-Tender Extremities: Other (I&D of the right hand noted. Patient does have some redness, swelling, inflammation of the right hand.) - Patient Data Lab Results Last 24 hrs: Laboratory Results - last 24 hr 12/27/20 12/27/20 12/27/20 Range/Units 12:32 12:32 12:32 WBC 10.91 (4.0-11.0) K/uL RBC 4.66 (4.50-5.90) M/uL Hgb 13.7 (13.0-17.0) g/dL Hct 40.2 (38.0-50.0) % MCV 86.3 (80.0-98.0) fL MCH 29.4 (27.0-32.0) pg MCHC 34.1 (31.0-37.0) g/dL RDW Std Deviation 41.7 (28.0-62.0) fl RDW Coeff of Tammy 13 (11.0-15.0) % Plt Count 356 (150-400) K/uL MPV 9.00 (7.40-12.00) fL Neut % (Auto) 72.9 (48.0-80.0) % Lymph % (Auto) 16.4 (16.0-40.0) % [place] % (Auto) 7.4 (0.0-15.0) % Eos % (Auto) 3.0 (0.0-7.0) % Baso % (Auto) 0.3 (0.0-1.5) % Neut # (Auto) 8.0 H (1.4-5.7) K/uL Lymph # (Auto) 1.8 (0.6-2.4) K/uL [place] # (Auto) 0.8 (0.0-0.8) K/uL Eos # (Auto) 0.3 (0.0-0.7) K/uL Baso # (Auto) 0.0 (0.0-0.1) K/uL Nucleated RBC % 0.0 /100WBC Nucleated RBCs # 0 K/uL Lactate 1.7 (0.20-2.00) mmol/L Sodium 136 (136-148) mmol/L Potassium 3.5 (3.5-5.1) mmol/L Chloride 99 (98-107) mmol/L Carbon Dioxide 27.8 (21.0-32.0) mmol/L BUN 10 (7.0-18.0) mg/dL Creatinine 0.9 (0.8-1.3) mg/dL Est Cr Clr Drug Dosing 135.63 mL/min Estimated GFR (MDRD) > 60.0 ml/min Glucose 151 H (74-106) mg/dL Calcium 8.8 (8.5-10.1) mg/dL Total Bilirubin 0.3 (0.2-1.0) mg/dL AST 27 (15-37) IU/L ALT 97 H (14-63) IU/L Alkaline Phosphatase 164 H (46-116) U/L Creatine Kinase 22 L (26-308) U/L C-Reactive Protein 19.20 H (0.00-0.90) mg/dL Total Protein 7.5 (6.4-8.2) g/dL Albumin 2.9 L (3.4-5.0) g/dL Globulin 4.6 H (2.6-4.0) g/dL Albumin/Globulin Ratio 0.6 L (0.9-1.6) Influenza Type A RNA (NEGATIVE) Influenza Type B RNA (NEGATIVE) SARS-CoV-2 RNA ([place]) (NEGATIVE) 03/22/21 03/23/21 03/23/21 Range/Units 16:00 04:40 04:40 WBC 10.32 (4.0-11.0) K/uL RBC 4.68 (4.50-5.90) M/uL Hgb 13.4 (13.0-17.0) g/dL Hct 40.5 (38.0-50.0) % MCV 86.5 (80.0-98.0) fL MCH 28.6 (27.0-32.0) pg MCHC 33.1 (31.0-37.0) g/dL RDW Std Deviation 41.7 (28.0-62.0) fl RDW Coeff of Tammy 13 (11.0-15.0) % Plt Count 371 (150-400) K/uL MPV 9.00 (7.40-12.00) fL Neut % (Auto) 57.1 (48.0-80.0) % Lymph % (Auto) 26.4 (16.0-40.0) % [place] % (Auto) 10.9 (0.0-15.0) % Eos % (Auto) 4.9 (0.0-7.0) % Baso % (Auto) 0.7 (0.0-1.5) % Neut # (Auto) 5.9 H (1.4-5.7) K/uL Lymph # (Auto) 2.7 H (0.6-2.4) K/uL [place] # (Auto) 1.1 H (0.0-0.8) K/uL Eos # (Auto) 0.5 (0.0-0.7) K/uL Baso # (Auto) 0.1 (0.0-0.1) K/uL Nucleated RBC % 0.0 /100WBC Nucleated RBCs # 0 K/uL Lactate (0.20-2.00) mmol/L Sodium 139 (136-148) mmol/L Potassium 4.2 (3.5-5.1) mmol/L Chloride 103 (98-107) mmol/L Carbon Dioxide 27.4 (21.0-32.0) mmol/L BUN 10 (7.0-18.0) mg/dL Creatinine 0.8 (0.8-1.3) mg/dL Est Cr Clr Drug Dosing 152.59 mL/min Estimated GFR (MDRD) > 60.0 ml/min Glucose 112 H (74-106) mg/dL Calcium 8.6 (8.5-10.1) mg/dL Total Bilirubin (0.2-1.0) mg/dL AST (15-37) IU/L ALT (14-63) IU/L Alkaline Phosphatase (46-116) U/L Creatine Kinase (26-308) U/L C-Reactive Protein (0.00-0.90) mg/dL Total Protein (6.4-8.2) g/dL Albumin (3.4-5.0) g/dL Globulin (2.6-4.0) g/dL Albumin/Globulin Ratio (0.9-1.6) Influenza Type A RNA NEGATIVE (NEGATIVE) Influenza Type B RNA NEGATIVE (NEGATIVE) SARS-CoV-2 RNA ([place]) NEGATIVE (NEGATIVE) Result Diagrams: 12/28/20 04:40 12/28/20 04:40 Sepsis Event Note - Evaluation Sepsis Screening Result: No Definite Risk - Focused Exam Vital Signs: Vital Signs Temp Pulse Resp BP Pulse Ox 12/28/20 07:05 97.3 F 82 14 155/83 H 97 12/28/20 04:00 98.2 F 82 16 130/75 98 12/28/20 00:00 97.8 F 89 17 132/72 98 - Problem List & Annotations (1) Hypertension SNOMED Code(s): 30588195 Code(s): I10 - ESSENTIAL (PRIMARY) HYPERTENSION Status: Acute Current Visit: Yes (2) Abscess, hand SNOMED Code(s): 9005318 Code(s): L02.519 - CUTANEOUS ABSCESS OF UNSPECIFIED HAND Status: Acute Current Visit: Yes (3) Cellulitis of hand SNOMED Code(s): 00563002 Code(s): L03.119 - CELLULITIS OF UNSPECIFIED PART OF LIMB Status: Acute Current Visit: No - Problem List Review Problem List Initiated/Reviewed/Updated: Yes - My Orders Last 24 Hours: My Active Orders 12/27/20 Dinner Regular Diet [DIET] 12/27/20 17:03 Code Status [Resuscitation Status] Stat 12/27/20 17:15 Oxygen Therapy [RC] PRN VTE/DVT Education [RC] PER UNIT ROUTINE Vital Signs [RC] Q4H Acetaminophen [TylenoL] 650 mg PO Q4H PRN Pharmacy to Dose - Vancomycin 1 dose .XX ASDIRECTED Piperacillin/Tazobactam [Piperacil-Tazobact] 3.375 gm Sodium Chloride 0.9% [Normal Saline] 50 ml IV Q6H 12/27/20 18:00 VANCOmycin 1.5 GM/300 ML 1.5 gm Premix Bag 1 bag IV Q8H 12/28/20 09:28 Acetaminophen/HYDROcodone [[place] 325-5 MG] 1 tab PO Q6H PRN 12/28/20 17:30 VANCOMYCIN TROUGH [CHEM] Routine - Plan Plan:: Cellulitis right hand-I&D performed in the ED. Continue vancomycin and Zosyn. A.m. labs, Blood cultures pending, Lovenox DVT prophylaxis. Regular diet. Yeaddiss q6 prn for pain. Patient to have onetime 2mg morphine prior to wound care
[2020-12-29] MEDS: Acetaminophen 325 MG Tab PO PRN ×3 (02:27→20:14)
[2020-12-29] MEDS: VANCOmycin 1.5 GM/300 ML 1.5 GM in Premix Bag 1 BAG IV SCH ×3 (02:28→18:04)
[2020-12-29] MEDS: Piperacillin/Tazobactam 3.375 GM in Sodium Chloride 0.9% 50 ML IV SCH ×6 (05:42→22:55)
[2020-12-29 06:00] LABS: BLOOD UREA NITROGEN,BUN 12 mg/dL (7.0-18.0); CARBON DIOXIDE,CO2 26.6 mmol/L (21.0-32.0); CHLORIDE,CL 102 mmol/L (98-107); GLUCOSE RANDOM 122 mg/dL (74-106); POTASSIUM,K 4.3 mmol/L (3.5-5.1); SODIUM,NA 137 mmol/L (136-148)
[2020-12-29] MEDS ORDERED: Morphine 2 MG/ML SYRINGE IVPUSH ONE (10:15)
--- NOTE | 2020-12-29 15:54 | PCM.PN ---
- General Info Date of Service: 12/29/20 Subjective Update: Patient states his hand feels better today. States increased mobility, increased strength, decreased pain, decreased swelling, decreased redness. Denies fever, c hills. Denies decreased strength or sensation in hand of finger tips. - Review of Systems General: Denies: Fever, Chills Pulmonary: Denies: Shortness of Breath Cardiovascular: Denies: Chest Pain Gastrointestinal: Denies: Abdominal Pain, Nausea, Vomiting Neurological: Denies: Confusion, Dizziness Psychiatric: Denies: Confusion - Patient Data Vitals - Most Recent: Last Vital Signs Temp 97.5 F 12/29/20 11:43 Pulse 75 12/29/20 11:43 Resp 14 12/29/20 11:43 BP 135/90 12/29/20 11:43 Pulse Ox 97 12/29/20 11:43 Weight - Most Recent: 239 lb 7 oz I&O - Last 24 Hours: Intake & Output 12/29/20 12/29/20 12/29/20 06:59 14:59 22:59 Intake Total 1350 Output Total 1800 Balance -450 Lab Results Last 24 Hours: Laboratory Results - last 24 hr 12/28/20 12/29/20 12/29/20 Range/Units 17:39 04:53 04:53 WBC 10.26 (4.0-11.0) K/uL RBC 4.80 (4.50-5.90) M/uL Hgb 13.9 (13.0-17.0) g/dL Hct 41.0 (38.0-50.0) % MCV 85.4 (80.0-98.0) fL MCH 29.0 (27.0-32.0) pg MCHC 33.9 (31.0-37.0) g/dL RDW Std Deviation 40.0 (28.0-62.0) fl RDW Coeff of Tammy 13 (11.0-15.0) % Plt Count 385 (150-400) K/uL MPV 8.70 (7.40-12.00) fL Add Manual Diff YES Neutrophils % (Manual) 51 (48.0-80.0) % Band Neutrophils % 4 % Lymphocytes % (Manual) 31 (16.0-40.0) % Monocytes % (Manual) 9 (0.0-15.0) % Eosinophils % (Manual) 4 (0.0-7.0) % Basophils % (Manual) 1 (0.0-1.5) % Nucleated RBC % 0.0 /100WBC Absolute Seg Neuts 5.2 (1.4-5.7) Band Neutrophils # 0.4 Lymphocytes # (Manual) 3.2 H (0.6-2.4) Monocytes # (Manual) 0.9 H (0.0-0.8) Eosinophils # (Manual) 0.4 (0.0-0.7) Basophils # (Manual) 0.1 (0.0-0.1) Nucleated RBCs # 0 K/uL Sodium 137 (136-148) mmol/L Potassium 4.3 (3.5-5.1) mmol/L Chloride 102 (98-107) mmol/L Carbon Dioxide 26.6 (21.0-32.0) mmol/L BUN 12 (7.0-18.0) mg/dL Creatinine 0.8 (0.8-1.3) mg/dL Est Cr Clr Drug Dosing 152.59 mL/min Estimated GFR (MDRD) > 60.0 ml/min Glucose 122 H (74-106) mg/dL Calcium 9.2 (8.5-10.1) mg/dL Vancomycin Trough 10.2 H (5.0-10.0) ug/mL Wayne Results Last 24 Hours: Microbiology 12/27/20 12:32 Aerobic Blood Culture - Preliminary Blood - Venous - Lab Draw NO GROWTH AFTER 2 DAYS Anaerobic Blood Culture - Preliminary NO GROWTH AFTER 2 DAYS 12/27/20 12:32 Aerobic Blood Culture - Preliminary Blood - Venous NO GROWTH AFTER 2 DAYS Anaerobic Blood Culture - Preliminary NO GROWTH AFTER 2 DAYS Med Orders - Current: Current Medications Acetaminophen (Acetaminophen 325 Mg Tab) 650 mg PO Q4H PRN PRN Reason: Pain/Fever Last Admin: 12/29/20 10:14 Dose: 650 mg Documented by: Hydrocodone Bitart/Acetaminophen (Acetaminophen/Hydrocodone 325-5 Mg Tab) 1 tab PO Q6H PRN PRN Reason: Pain (severe 7-10) Piperacillin Sod/Tazobactam (Sod 3.375 gm/ Sodium Chloride) 50 mls @ 100 mls/hr IV Q6H [facility] Last Admin: 12/29/20 12:06 Dose: 100 mls/hr Documented by: Vancomycin HCl 1.5 gm/ Premix 300 mls @ 200 mls/hr IV Q8H [facility] Last Admin: 12/29/20 09:57 Dose: 200 mls/hr Documented by: Vancomycin HCl (Pharmacy To Dose - Vancomycin) 1 dose .XX ASDIRECTED [facility] Discontinued Medications Sodium Chloride (Normal Saline) 1,000 mls @ 999 mls/hr IV .BOLUS ONE Stop: 12/27/20 13:11 Last Infusion: 12/27/20 13:49 Dose: Infused Documented by: Vancomycin HCl 1.5 gm/ Premix 300 mls @ 200 mls/hr IV ONETIME ONE Stop: 12/27/20 13:41 Last Infusion: 12/27/20 14:00 Dose: 200 mls/hr Documented by: Iopamidol (Iopamidol 755 Mg/Ml 500 Ml Multipack Bottle) 100 ml IVPUSH ONETIME STA Stop: 12/27/20 14:11 Last Admin: 12/27/20 14:13 Dose: 100 ml Documented by: Lidocaine/Epinephrine (Lidocaine 1% With Epinephrine 1:100,000 20 Ml Mdv) 20 ml SUBCUT ONETIME ONE Stop: 12/27/20 15:12 Last Admin: 12/27/20 15:40 Dose: 20 ml Documented by: Morphine Sulfate (Morphine 4 Mg/Ml Syringe) 4 mg IVPUSH ONETIME ONE Stop: 12/27/20 12:12 Last Admin: 12/27/20 12:36 Dose: 4 mg Documented by: Morphine Sulfate (Morphine 4 Mg/Ml Syringe) 4 mg IVPUSH ONETIME ONE Stop: 12/27/20 15:58 Last Admin: 12/27/20 16:05 Dose: 4 mg Documented by: Morphine Sulfate (Morphine 2 Mg/Ml Syringe) 2 mg IVPUSH ONETIME ONE Stop: 12/28/20 10:01 Last Admin: 12/28/20 10:07 Dose: 2 mg Documented by: Morphine Sulfate (Morphine 2 Mg/Ml Syringe) 2 mg IVPUSH ONETIME ONE Stop: 12/29/20 10:16 Last Admin: 12/29/20 10:49 Dose: 2 mg Documented by: - Exam General: Alert, Oriented Lungs: Clear to Auscultation, Normal Respiratory Effort Cardiovascular: Regular Rate, Regular Rhythm GI/Abdominal Exam: Normal Bowel Sounds, Soft, Non-Tender Extremities: No Pedal Edema Wound/Incisions: Healing Well, Dressing Dry and Intact, Drainage (Mild discharge, non purulent.), Erythema Improving Psy/Mental Status: Alert - Patient Data Lab Results Last 24 hrs: Laboratory Results - last 24 hr 12/28/20 12/29/20 12/29/20 Range/Units 17:39 04:53 04:53 WBC 10.26 (4.0-11.0) K/uL RBC 4.80 (4.50-5.90) M/uL Hgb 13.9 (13.0-17.0) g/dL Hct 41.0 (38.0-50.0) % MCV 85.4 (80.0-98.0) fL MCH 29.0 (27.0-32.0) pg MCHC 33.9 (31.0-37.0) g/dL RDW Std Deviation 40.0 (28.0-62.0) fl RDW Coeff of Tammy 13 (11.0-15.0) % Plt Count 385 (150-400) K/uL MPV 8.70 (7.40-12.00) fL Add Manual Diff YES Neutrophils % (Manual) 51 (48.0-80.0) % Band Neutrophils % 4 % Lymphocytes % (Manual) 31 (16.0-40.0) % Monocytes % (Manual) 9 (0.0-15.0) % Eosinophils % (Manual) 4 (0.0-7.0) % Basophils % (Manual) 1 (0.0-1.5) % Nucleated RBC % 0.0 /100WBC Absolute Seg Neuts 5.2 (1.4-5.7) Band Neutrophils # 0.4 Lymphocytes # (Manual) 3.2 H (0.6-2.4) Monocytes # (Manual) 0.9 H (0.0-0.8) Eosinophils # (Manual) 0.4 (0.0-0.7) Basophils # (Manual) 0.1 (0.0-0.1) Nucleated RBCs # 0 K/uL Sodium 137 (136-148) mmol/L Potassium 4.3 (3.5-5.1) mmol/L Chloride 102 (98-107) mmol/L Carbon Dioxide 26.6 (21.0-32.0) mmol/L BUN 12 (7.0-18.0) mg/dL Creatinine 0.8 (0.8-1.3) mg/dL Est Cr Clr Drug Dosing 152.59 mL/min Estimated GFR (MDRD) > 60.0 ml/min Glucose 122 H (74-106) mg/dL Calcium 9.2 (8.5-10.1) mg/dL Vancomycin Trough 10.2 H (5.0-10.0) ug/mL Result Diagrams: 12/29/20 04:53 12/29/20 04:53 Wayne Results Last 24 hrs: Microbiology 12/27/20 12:32 Aerobic Blood Culture - Preliminary Blood - Venous - Lab Draw NO GROWTH AFTER 2 DAYS Anaerobic Blood Culture - Preliminary NO GROWTH AFTER 2 DAYS 12/27/20 12:32 Aerobic Blood Culture - Preliminary Blood - Venous NO GROWTH AFTER 2 DAYS Anaerobic Blood Culture - Preliminary NO GROWTH AFTER 2 DAYS Sepsis Event Note - Evaluation Sepsis Screening Result: No Definite Risk - Focused Exam Vital Signs: Vital Signs Temp Pulse Resp BP Pulse Ox 12/29/20 11:43 97.5 F 75 14 135/90 97 12/29/20 07:47 96.7 F L 76 15 140/80 97 12/29/20 04:33 97 F 76 15 132/86 97 - Problem List & Annotations (1) Hypertension SNOMED Code(s): 04223393 Code(s): I10 - ESSENTIAL (PRIMARY) HYPERTENSION Status: Acute Current Visit: Yes (2) Abscess, hand SNOMED Code(s): 4443117 Code(s): L02.519 - CUTANEOUS ABSCESS OF UNSPECIFIED HAND Status: Acute Current Visit: Yes (3) Cellulitis of hand SNOMED Code(s): 49114158 Code(s): L03.119 - CELLULITIS OF UNSPECIFIED PART OF LIMB Status: Acute Current Visit: No - Problem List Review Problem List Initiated/Reviewed/Updated: Yes - My Orders Last 24 Hours: My Active Orders 12/30/20 17:30 VANCOMYCIN TROUGH [CHEM] Routine - Plan Plan:: Cellulitis right hand-Continue vancomycin and Zosyn. A.m. labs, Blood cultures pending Lovenox DVT prophylaxis. Regular diet. [place] q6 prn for pain. Patient to have one time 2mg morphine prior to wound care for pain.
[2020-12-29] MEDS: Acetaminophen/HYDROcodone 325-5 MG Tab PO PRN (23:04)
[2020-12-30] MEDS: VANCOmycin 1.5 GM/300 ML 1.5 GM in Premix Bag 1 BAG IV SCH ×3 (01:54→19:14)
[2020-12-30] MEDS: Piperacillin/Tazobactam 3.375 GM in Sodium Chloride 0.9% 50 ML IV SCH ×4 (05:20→23:50)
[2020-12-30 05:54] LABS: BLOOD UREA NITROGEN,BUN 20 mg/dL (7.0-18.0); CARBON DIOXIDE,CO2 26.1 mmol/L (21.0-32.0); CHLORIDE,CL 103 mmol/L (98-107); GLUCOSE RANDOM 102 mg/dL (74-106); POTASSIUM,K 4.3 mmol/L (3.5-5.1); SODIUM,NA 136 mmol/L (136-148)
--- NOTE | 2020-12-30 11:23 | PCM.PN ---
- General Info Date of Service: 12/30/20 Subjective Update: Patient states that his hand condition is improving today. States increased movement with decreased swelling, redness and pain. Denies fever, chills, nausea, vomiting. - Review of Systems General: Denies: Fever, Chills Pulmonary: Denies: Shortness of Breath Cardiovascular: Denies: Chest Pain Gastrointestinal: Denies: Abdominal Pain, Nausea, Vomiting Musculoskeletal: Denies: Hand Pain Neurological: Denies: Confusion - Patient Data Vitals - Most Recent: Last Vital Signs Temp 97.8 F 12/30/20 07:21 Pulse 73 12/30/20 07:21 Resp 15 12/30/20 07:21 BP 138/96 H 12/30/20 07:21 Pulse Ox 97 12/30/20 07:21 Weight - Most Recent: 239 lb 7 oz I&O - Last 24 Hours: Intake & Output 12/29/20 12/30/20 12/30/20 22:59 06:59 14:59 Intake Total 1672 1600 Output Total 2550 950 Balance -878 650 Lab Results Last 24 Hours: Laboratory Results - last 24 hr 12/30/20 12/30/20 Range/Units 04:50 04:50 WBC 10.80 (4.0-11.0) K/uL RBC 4.98 (4.50-5.90) M/uL Hgb 14.4 (13.0-17.0) g/dL Hct 42.4 (38.0-50.0) % MCV 85.1 (80.0-98.0) fL MCH 28.9 (27.0-32.0) pg MCHC 34.0 (31.0-37.0) g/dL RDW Std Deviation 39.5 (28.0-62.0) fl RDW Coeff of Tammy 13 (11.0-15.0) % Plt Count 391 (150-400) K/uL MPV 8.50 (7.40-12.00) fL Add Manual Diff YES Neutrophils % (Manual) 45 L (48.0-80.0) % Band Neutrophils % 4 % Lymphocytes % (Manual) 34 (16.0-40.0) % Monocytes % (Manual) 7 (0.0-15.0) % Eosinophils % (Manual) 7 (0.0-7.0) % Basophils % (Manual) 1 (0.0-1.5) % Myelocytes % 2 % Nucleated RBC % 0.0 /100WBC Absolute Seg Neuts 4.9 (1.4-5.7) Band Neutrophils # 0.4 Lymphocytes # (Manual) 3.7 H (0.6-2.4) Monocytes # (Manual) 0.8 (0.0-0.8) Eosinophils # (Manual) 0.8 H (0.0-0.7) Basophils # (Manual) 0.1 (0.0-0.1) Absolute Myelocytes 0.2 Nucleated RBCs # 0 K/uL Sodium 136 (136-148) mmol/L Potassium 4.3 (3.5-5.1) mmol/L Chloride 103 (98-107) mmol/L Carbon Dioxide 26.1 (21.0-32.0) mmol/L BUN 20 H (7.0-18.0) mg/dL Creatinine 0.9 (0.8-1.3) mg/dL Est Cr Clr Drug Dosing 135.63 mL/min Estimated GFR (MDRD) > 60.0 ml/min Glucose 102 (74-106) mg/dL Calcium 9.0 (8.5-10.1) mg/dL Wayne Results Last 24 Hours: Microbiology 12/27/20 12:32 Aerobic Blood Culture - Preliminary Blood - Venous - Lab Draw NO GROWTH AFTER 2 DAYS Anaerobic Blood Culture - Preliminary NO GROWTH AFTER 2 DAYS 12/27/20 12:32 Aerobic Blood Culture - Preliminary Blood - Venous NO GROWTH AFTER 2 DAYS Anaerobic Blood Culture - Preliminary NO GROWTH AFTER 2 DAYS Med Orders - Current: Current Medications Acetaminophen (Acetaminophen 325 Mg Tab) 650 mg PO Q4H PRN PRN Reason: Pain/Fever Last Admin: 12/29/20 20:14 Dose: 650 mg Documented by: Hydrocodone Bitart/Acetaminophen (Acetaminophen/Hydrocodone 325-5 Mg Tab) 1 tab PO Q6H PRN PRN Reason: Pain (severe 7-10) Last Admin: 12/29/20 23:04 Dose: 1 tab Documented by: Piperacillin Sod/Tazobactam (Sod 3.375 gm/ Sodium Chloride) 50 mls @ 100 mls/hr IV Q6H [facility] Last Admin: 12/30/20 05:20 Dose: 100 mls/hr Documented by: Vancomycin HCl 1.5 gm/ Premix 300 mls @ 200 mls/hr IV Q8H [facility] Last Admin: 12/30/20 10:28 Dose: 200 mls/hr Documented by: Vancomycin HCl (Pharmacy To Dose - Vancomycin) 1 dose .XX ASDIRECTED [facility] Discontinued Medications Sodium Chloride (Normal Saline) 1,000 mls @ 999 mls/hr IV .BOLUS ONE Stop: 12/27/20 13:11 Last Infusion: 12/27/20 13:49 Dose: Infused Documented by: Vancomycin HCl 1.5 gm/ Premix 300 mls @ 200 mls/hr IV ONETIME ONE Stop: 12/27/20 13:41 Last Infusion: 12/27/20 14:00 Dose: 200 mls/hr Documented by: Iopamidol (Iopamidol 755 Mg/Ml 500 Ml Multipack Bottle) 100 ml IVPUSH ONETIME STA Stop: 12/27/20 14:11 Last Admin: 12/27/20 14:13 Dose: 100 ml Documented by: Lidocaine/Epinephrine (Lidocaine 1% With Epinephrine 1:100,000 20 Ml Mdv) 20 ml SUBCUT ONETIME ONE Stop: 12/27/20 15:12 Last Admin: 12/27/20 15:40 Dose: 20 ml Documented by: Morphine Sulfate (Morphine 4 Mg/Ml Syringe) 4 mg IVPUSH ONETIME ONE Stop: 12/27/20 12:12 Last Admin: 12/27/20 12:36 Dose: 4 mg Documented by: Morphine Sulfate (Morphine 4 Mg/Ml Syringe) 4 mg IVPUSH ONETIME ONE Stop: 12/27/20 15:58 Last Admin: 12/27/20 16:05 Dose: 4 mg Documented by: Morphine Sulfate (Morphine 2 Mg/Ml Syringe) 2 mg IVPUSH ONETIME ONE Stop: 12/28/20 10:01 Last Admin: 12/28/20 10:07 Dose: 2 mg Documented by: Morphine Sulfate (Morphine 2 Mg/Ml Syringe) 2 mg IVPUSH ONETIME ONE Stop: 12/29/20 10:16 Last Admin: 12/29/20 10:49 Dose: 2 mg Documented by: - Exam General: Alert, Oriented Lungs: Clear to Auscultation, Normal Respiratory Effort Cardiovascular: Regular Rate, Regular Rhythm GI/Abdominal Exam: Soft, Non-Tender Wound/Incisions: Healing Well, Drainage (non purulent), Erythema Improving Psy/Mental Status: Alert - Patient Data Lab Results Last 24 hrs: Laboratory Results - last 24 hr 12/30/20 12/30/20 Range/Units 04:50 04:50 WBC 10.80 (4.0-11.0) K/uL RBC 4.98 (4.50-5.90) M/uL Hgb 14.4 (13.0-17.0) g/dL Hct 42.4 (38.0-50.0) % MCV 85.1 (80.0-98.0) fL MCH 28.9 (27.0-32.0) pg MCHC 34.0 (31.0-37.0) g/dL RDW Std Deviation 39.5 (28.0-62.0) fl RDW Coeff of Tammy 13 (11.0-15.0) % Plt Count 391 (150-400) K/uL MPV 8.50 (7.40-12.00) fL Add Manual Diff YES Neutrophils % (Manual) 45 L (48.0-80.0) % Band Neutrophils % 4 % Lymphocytes % (Manual) 34 (16.0-40.0) % Monocytes % (Manual) 7 (0.0-15.0) % Eosinophils % (Manual) 7 (0.0-7.0) % Basophils % (Manual) 1 (0.0-1.5) % Myelocytes % 2 % Nucleated RBC % 0.0 /100WBC Absolute Seg Neuts 4.9 (1.4-5.7) Band Neutrophils # 0.4 Lymphocytes # (Manual) 3.7 H (0.6-2.4) Monocytes # (Manual) 0.8 (0.0-0.8) Eosinophils # (Manual) 0.8 H (0.0-0.7) Basophils # (Manual) 0.1 (0.0-0.1) Absolute Myelocytes 0.2 Nucleated RBCs # 0 K/uL Sodium 136 (136-148) mmol/L Potassium 4.3 (3.5-5.1) mmol/L Chloride 103 (98-107) mmol/L Carbon Dioxide 26.1 (21.0-32.0) mmol/L BUN 20 H (7.0-18.0) mg/dL Creatinine 0.9 (0.8-1.3) mg/dL Est Cr Clr Drug Dosing 135.63 mL/min Estimated GFR (MDRD) > 60.0 ml/min Glucose 102 (74-106) mg/dL Calcium 9.0 (8.5-10.1) mg/dL Result Diagrams: 12/30/20 04:50 12/30/20 04:50 Wayne Results Last 24 hrs: Microbiology 12/27/20 12:32 Aerobic Blood Culture - Preliminary Blood - Venous - Lab Draw NO GROWTH AFTER 2 DAYS Anaerobic Blood Culture - Preliminary NO GROWTH AFTER 2 DAYS 12/27/20 12:32 Aerobic Blood Culture - Preliminary Blood - Venous NO GROWTH AFTER 2 DAYS Anaerobic Blood Culture - Preliminary NO GROWTH AFTER 2 DAYS Sepsis Event Note - Evaluation Sepsis Screening Result: No Definite Risk - Focused Exam Vital Signs: Vital Signs Temp Pulse Resp BP Pulse Ox 12/30/20 07:21 97.8 F 73 15 138/96 H 97 12/30/20 04:00 97.7 F 82 15 132/85 97 - Problem List & Annotations (1) Hypertension SNOMED Code(s): 60265131 Code(s): I10 - ESSENTIAL (PRIMARY) HYPERTENSION Status: Acute Current Visit: Yes (2) Abscess, hand SNOMED Code(s): 3872619 Code(s): L02.519 - CUTANEOUS ABSCESS OF UNSPECIFIED HAND Status: Acute Current Visit: Yes (3) Cellulitis of hand SNOMED Code(s): 92233206 Code(s): L03.119 - CELLULITIS OF UNSPECIFIED PART OF LIMB Status: Acute Current Visit: No - Problem List Review Problem List Initiated/Reviewed/Updated: Yes - My Orders Last 24 Hours: My Active Orders 12/30/20 17:30 VANCOMYCIN TROUGH [CHEM] Routine - Plan Plan:: Cellulitis right hand-Continue vancomycin and Zosyn. A.m. labs, Blood cultures pending Lovenox DVT prophylaxis. Regular diet. [place] q6 prn for pain. Patient requires one time IV push 2mg morphine prior to wound care due to pain. Possible discharge home tomorrow.
[2020-12-30] MEDS ORDERED: Morphine 2 MG/ML SYRINGE IVPUSH ONE (14:02)
[2020-12-31] MEDS: VANCOmycin 1.5 GM/300 ML 1.5 GM in Premix Bag 1 BAG IV SCH ×2 (03:18→09:55)
[2020-12-31] MEDS: Piperacillin/Tazobactam 3.375 GM in Sodium Chloride 0.9% 50 ML IV SCH ×2 (04:58→11:34)
[2020-12-31 06:00] LABS: BLOOD UREA NITROGEN,BUN 18 mg/dL (7.0-18.0); CARBON DIOXIDE,CO2 27.7 mmol/L (21.0-32.0); CHLORIDE,CL 102 mmol/L (98-107); GLUCOSE RANDOM 104 mg/dL (74-106); POTASSIUM,K 4.5 mmol/L (3.5-5.1); SODIUM,NA 136 mmol/L (136-148)
[2020-12-31 08:29] VITALS: BP 148/94; PULSE 74
[2020-12-31] MEDS: Acetaminophen/HYDROcodone 325-5 MG Tab PO PRN (09:54)
--- NOTE | 2020-12-31 11:03 | PCM.DCSUM1 ---
<Jace Boyle - Last Filed: 12/31/20 13:33> Discharge Summary - Hospital Course Free Text/Narrative:: 30-year-old male with past medical history of hypertension, admitted to the medical floor for cellulitis of the right hand. Patient presented to the ED with right hand tenderness, pain, inflammation and swelling. Patient states that roughly 1 week prior to admission he was running and fell onto the concrete ground with an outstretched hand. Patient presented to the ER at which time I&D was performed. Patient stated moderate relief post I&D and was admitted to the medical floor for IV antibiotics. Case discussed with Dr. Delgado from general surgery, recommendation made that if patient's hand condition did not improve with IV antibiotics, patient should be referred to hand surgeon. CT hand impression, large apparent epidermal bullous lesion through defect and verrucous communicating with moderate size infiltrating subcutaneous abscess. Prominent surrounding cellulitis. Diffuse subcutaneous edema no infiltration into carpal tunnel. No tenosynovitis of the tendons. White blood cell count 10.9, lactate 1.7, CRP 19.2 Patient started on IV vancomycin and Zosyn and had no issues during the course of his admission. 12-31-20 patient advised to stay for continued IV antibiotic t reatment stated that he would like to go home today. Patient understands that he should visit the ED if he notices any increase in hand pain, hand redness, hand swelling, fever, chills. Patient states that he is able to take care of the wound at home including wound packing. Patient understands and states that he will follow up with hand surgery as soon as possible. Patient discharged home with Augmentin, Bactrim antibiotics. Patient also given hydrocodone to be used for and pain especially when packing the wound. Patient understands the risks of leaving prior to receiving further IV antibiotic treatment. - Discharge Data Discharge Date: 12/31/20 Discharge Disposition: Home, Self-Care 01 Condition: Good - Referral to Home Health Primary Care Physician: PCP None - Discharge Diagnosis/Problem(s) (1) Hypertension SNOMED Code(s): 36823432 ICD Code: I10 - ESSENTIAL (PRIMARY) HYPERTENSION Status: Acute (2) Abscess, hand SNOMED Code(s): 7955954 ICD Code: L02.519 - CUTANEOUS ABSCESS OF UNSPECIFIED HAND Status: Acute (3) Cellulitis of hand SNOMED Code(s): 33713573 ICD Code: L03.119 - CELLULITIS OF UNSPECIFIED PART OF LIMB Status: Acute - Patient Instructions Diet: Usual Diet as Tolerated Activity: As Tolerated Notify Provider of: Fever, Increased Pain, Swelling and Redness, Drainage, Nausea and/or Vomiting Other/Special Instructions: Patient to return to the ED at the first signs of increased hand pain, swelling, redness, fever, chills. Patient to follow up with hand surgery as soon as possible - Discharge Plan Prescriptions/Med Rec: Amoxicillin/Clavulanate K [Augmentin 875-125 MG] 1 tab PO BID 11 Days #22 tablet Sulfamethoxazole/Trimethoprim [Bactrim Ds Tablet] 1 each PO BID 11 Days #22 tablet Acetaminophen/HYDROcodone [[place] 325-5 MG] 1 tab PO Q8H #6 tablet Home Medications: Home Meds amLODIPine [Norvasc] 5 mg PO DAILY 30 Days #30 tab 12/23/20 [Rx] Acetaminophen/HYDROcodone [[place] 325-5 MG] 1 tab PO Q8H #6 tablet 12/31/20 [Rx] Amoxicillin/Clavulanate K [Augmentin 875-125 MG] 1 tab PO BID 11 Days #22 tablet 12/31/20 [Rx] Sulfamethoxazole/Trimethoprim [Bactrim Ds Tablet] 1 each PO BID 11 Days #22 tablet 12/31/20 [Rx] Patient Handouts: Acetaminophen; Hydrocodone tablets or capsules, Amoxicillin; Clavulanic Acid Tablets, Skin Abscess, [id number], Incision and Drainage, Care After, Sulfamethoxazole; Trimethoprim, SMX-TMP tablets Forms: ED Department Discharge Referrals: Yessi Parada NP [Nurse Practitioner] - 01/11/21 1:30 pm Jose R Holman MD [Ordering Only Provider] - 01/05/21 3:00 pm - Discharge Summary/Plan Comment DC Time >30 min.: Yes - General Info Date of Service: 12/31/20 - Review of Systems General: Denies: Fever, Chills Pulmonary: Denies: Shortness of Breath, Cough Cardiovascular: Denies: Chest Pain Gastrointestinal: Denies: Abdominal Pain, Nausea, Vomiting Neurological: Denies: Confusion, Dizziness Psychiatric: Denies: Confusion - Patient Data Vitals - Most Recent: Last Vital Signs Temp 96.5 F L 12/31/20 08:28 Pulse 74 12/31/20 08:28 Resp 22 H 12/31/20 08:28 BP 148/94 H 12/31/20 08:28 Pulse Ox 96 12/31/20 08:28 Weight - Most Recent: 108.607 kg I&O - Last 24 hours: Intake & Output 12/30/20 12/31/20 12/31/20 22:59 06:59 14:59 Intake Total 1210 1300 Balance 1210 1300 Lab Results - Last 24 hrs: Laboratory Results - last 24 hr 12/30/20 12/31/20 12/31/20 Range/Units 17:28 05:29 05:29 WBC 11.28 H (4.0-11.0) K/uL RBC 5.26 (4.50-5.90) M/uL Hgb 15.3 (13.0-17.0) g/dL Hct 45.2 (38.0-50.0) % MCV 85.9 (80.0-98.0) fL MCH 29.1 (27.0-32.0) pg MCHC 33.8 (31.0-37.0) g/dL RDW Std Deviation 40.5 (28.0-62.0) fl RDW Coeff of Tammy 13 (11.0-15.0) % Plt Count 393 (150-400) K/uL MPV 8.40 (7.40-12.00) fL Add Manual Diff YES Neutrophils % (Manual) 48 (48.0-80.0) % Band Neutrophils % 5 % Lymphocytes % (Manual) 34 (16.0-40.0) % Monocytes % (Manual) 10 (0.0-15.0) % Basophils % (Manual) 3 H (0.0-1.5) % Nucleated RBC % 0.0 /100WBC Absolute Seg Neuts 5.4 (1.4-5.7) Band Neutrophils # 0.6 Lymphocytes # (Manual) 3.8 H (0.6-2.4) Monocytes # (Manual) 1.1 H (0.0-0.8) Basophils # (Manual) 0.3 H (0.0-0.1) Nucleated RBCs # 0 K/uL Sodium 136 (136-148) mmol/L Potassium 4.5 (3.5-5.1) mmol/L Chloride 102 (98-107) mmol/L Carbon Dioxide 27.7 (21.0-32.0) mmol/L BUN 18 (7.0-18.0) mg/dL Creatinine 0.9 (0.8-1.3) mg/dL Est Cr Clr Drug Dosing 135.63 mL/min Estimated GFR (MDRD) > 60.0 ml/min Glucose 104 (74-106) mg/dL Calcium 9.1 (8.5-10.1) mg/dL Vancomycin Trough 15.1 H (5.0-10.0) ug/mL JEANETTE Results - Last 24 hrs: Microbiology 12/27/20 12:32 Aerobic Blood Culture - Preliminary Blood - Venous - Lab Draw NO GROWTH AFTER 3 DAYS Anaerobic Blood Culture - Preliminary NO GROWTH AFTER 3 DAYS 12/27/20 12:32 Aerobic Blood Culture - Preliminary Blood - Venous NO GROWTH AFTER 3 DAYS Anaerobic Blood Culture - Preliminary NO GROWTH AFTER 3 DAYS Med Orders - Current: Current Medications Acetaminophen (Acetaminophen 325 Mg Tab) 650 mg PO Q4H PRN PRN Reason: Pain/Fever Last Admin: 12/29/20 20:14 Dose: 650 mg Documented by: Hydrocodone Bitart/Acetaminophen (Acetaminophen/Hydrocodone 325-5 Mg Tab) 1 tab PO Q6H PRN PRN Reason: Pain (severe 7-10) Last Admin: 12/31/20 09:54 Dose: 1 tab Documented by: Piperacillin Sod/Tazobactam (Sod 3.375 gm/ Sodium Chloride) 50 mls @ 100 mls/hr IV Q6H [facility] Last Admin: 12/31/20 04:58 Dose: 100 mls/hr Documented by: Vancomycin HCl 1.5 gm/ Premix 300 mls @ 200 mls/hr IV Q8H [facility] Last Admin: 12/31/20 09:55 Dose: 200 mls/hr Documented by: Vancomycin HCl (Pharmacy To Dose - Vancomycin) 1 dose .XX ASDIRECTED [facility] Discontinued Medications Sodium Chloride (Normal Saline) 1,000 mls @ 999 mls/hr IV .BOLUS ONE Stop: 12/27/20 13:11 Last Infusion: 12/27/20 13:49 Dose: Infused Documented by: Vancomycin HCl 1.5 gm/ Premix 300 mls @ 200 mls/hr IV ONETIME ONE Stop: 12/27/20 13:41 Last Infusion: 12/27/20 14:00 Dose: 200 mls/hr Documented by: Iopamidol (Iopamidol 755 Mg/Ml 500 Ml Multipack Bottle) 100 ml IVPUSH ONETIME STA Stop: 12/27/20 14:11 Last Admin: 12/27/20 14:13 Dose: 100 ml Documented by: Lidocaine/Epinephrine (Lidocaine 1% With Epinephrine 1:100,000 20 Ml Mdv) 20 ml SUBCUT ONETIME ONE Stop: 12/27/20 15:12 Last Admin: 12/27/20 15:40 Dose: 20 ml Documented by: Morphine Sulfate (Morphine 4 Mg/Ml Syringe) 4 mg IVPUSH ONETIME ONE Stop: 12/27/20 12:12 Last Admin: 12/27/20 12:36 Dose: 4 mg Documented by: Morphine Sulfate (Morphine 4 Mg/Ml Syringe) 4 mg IVPUSH ONETIME ONE Stop: 12/27/20 15:58 Last Admin: 12/27/20 16:05 Dose: 4 mg Documented by: Morphine Sulfate (Morphine 2 Mg/Ml Syringe) 2 mg IVPUSH ONETIME ONE Stop: 12/28/20 10:01 Last Admin: 12/28/20 10:07 Dose: 2 mg Documented by: Morphine Sulfate (Morphine 2 Mg/Ml Syringe) 2 mg IVPUSH ONETIME ONE Stop: 12/29/20 10:16 Last Admin: 12/29/20 10:49 Dose: 2 mg Documented by: Morphine Sulfate (Morphine 2 Mg/Ml Syringe) 2 mg IVPUSH ONETIME ONE Stop: 12/30/20 14:03 Last Admin: 12/30/20 14:18 Dose: 2 mg Documented by: - Exam General: Reports: Alert, Oriented Lungs: Reports: Clear to Auscultation, Normal Respiratory Effort Cardiovascular: Reports: Regular Rate, Regular Rhythm GI/Abdominal Exam: Normal Bowel Sounds, Soft, Non-Tender Wound/Incisions: Reports: Healing Well, Dressing Dry and Intact, Drainage (NON PURULENT), Erythema Improving Neurological: Reports: Normal Speech Psy/Mental Status: Reports: Alert Discharge Operative/Procedures - Procedures Performed I&D Site: palm of hand <Remi Nevarez - Last Filed: 12/31/20 23:03> Discharge Summary - Hospital Course Free Text/Narrative:: I have seen and evaluated the patient and agree with the residents note unless specified in my note - Referral to Home Health Primary Care Physician: PCP None - Patient Data Vitals - Most Recent: Last Vital Signs Temp 35.8 C L 12/31/20 08:28 Pulse 74 12/31/20 08:28 Resp 22 H 12/31/20 08:28 BP 148/94 H 12/31/20 08:28 Pulse Ox 96 12/31/20 08:28 Lab Results - Last 24 hrs: Laboratory Results - last 24 hr 12/31/20 12/31/20 Range/Units 05:29 05:29 WBC 11.28 H (4.0-11.0) K/uL RBC 5.26 (4.50-5.90) M/uL Hgb 15.3 (13.0-17.0) g/dL Hct 45.2 (38.0-50.0) % MCV 85.9 (80.0-98.0) fL MCH 29.1 (27.0-32.0) pg MCHC 33.8 (31.0-37.0) g/dL RDW Std Deviation 40.5 (28.0-62.0) fl RDW Coeff of Tammy 13 (11.0-15.0) % Plt Count 393 (150-400) K/uL MPV 8.40 (7.40-12.00) fL Add Manual Diff YES Neutrophils % (Manual) 48 (48.0-80.0) % Band Neutrophils % 5 % Lymphocytes % (Manual) 34 (16.0-40.0) % Monocytes % (Manual) 10 (0.0-15.0) % Basophils % (Manual) 3 H (0.0-1.5) % Nucleated RBC % 0.0 /100WBC Absolute Seg Neuts 5.4 (1.4-5.7) Band Neutrophils # 0.6 Lymphocytes # (Manual) 3.8 H (0.6-2.4) Monocytes # (Manual) 1.1 H (0.0-0.8) Basophils # (Manual) 0.3 H (0.0-0.1) Nucleated RBCs # 0 K/uL Sodium 136 (136-148) mmol/L Potassium 4.5 (3.5-5.1) mmol/L Chloride 102 (98-107) mmol/L Carbon Dioxide 27.7 (21.0-32.0) mmol/L BUN 18 (7.0-18.0) mg/dL Creatinine 0.9 (0.8-1.3) mg/dL Est Cr Clr Drug Dosing 135.63 mL/min Estimated GFR (MDRD) > 60.0 ml/min Glucose 104 (74-106) mg/dL Calcium 9.1 (8.5-10.1) mg/dL JEANETTE Results - Last 24 hrs: Microbiology 12/27/20 12:32 Aerobic Blood Culture - Preliminary Blood - Venous - Lab Draw NO GROWTH AFTER 4 DAYS Anaerobic Blood Culture - Preliminary NO GROWTH AFTER 4 DAYS 12/27/20 12:32 Aerobic Blood Culture - Preliminary Blood - Venous NO GROWTH AFTER 4 DAYS Anaerobic Blood Culture - Preliminary NO GROWTH AFTER 4 DAYS Med Orders - Current: Current Medications Discontinued Medications Acetaminophen (Acetaminophen 325 Mg Tab) 650 mg PO Q4H PRN PRN Reason: Pain/Fever Last Admin: 12/29/20 20:14 Dose: 650 mg Documented by: Hydrocodone Bitart/Acetaminophen (Acetaminophen/Hydrocodone 325-5 Mg Tab) 1 tab PO Q6H PRN PRN Reason: Pain (severe 7-10) Last Admin: 12/31/20 09:54 Dose: 1 tab Documented by: Sodium Chloride (Normal Saline) 1,000 mls @ 999 mls/hr IV .BOLUS ONE Stop: 12/27/20 13:11 Last Infusion: 12/27/20 13:49 Dose: Infused Documented by: Vancomycin HCl 1.5 gm/ Premix 300 mls @ 200 mls/hr IV ONETIME ONE Stop: 12/27/20 13:41 Last Infusion: 12/27/20 14:00 Dose: 200 mls/hr Documented by: Piperacillin Sod/Tazobactam (Sod 3.375 gm/ Sodium Chloride) 50 mls @ 100 mls/hr IV Q6H [facility] Last Admin: 12/31/20 11:34 Dose: 100 mls/hr Documented by: Vancomycin HCl 1.5 gm/ Premix 300 mls @ 200 mls/hr IV Q8H [facility] Last Admin: 12/31/20 09:55 Dose: 200 mls/hr Documented by: Iopamidol (Iopamidol 755 Mg/Ml 500 Ml Multipack Bottle) 100 ml IVPUSH ONETIME STA Stop: 12/27/20 14:11 Last Admin: 12/27/20 14:13 Dose: 100 ml Documented by: Lidocaine/Epinephrine (Lidocaine 1% With Epinephrine 1:100,000 20 Ml Mdv) 20 ml SUBCUT ONETIME ONE Stop: 12/27/20 15:12 Last Admin: 12/27/20 15:40 Dose: 20 ml Documented by: Morphine Sulfate (Morphine 4 Mg/Ml Syringe) 4 mg IVPUSH ONETIME ONE Stop: 12/27/20 12:12 Last Admin: 12/27/20 12:36 Dose: 4 mg Documented by: Morphine Sulfate (Morphine 4 Mg/Ml Syringe) 4 mg IVPUSH ONETIME ONE Stop: 12/27/20 15:58 Last Admin: 12/27/20 16:05 Dose: 4 mg Documented by: Morphine Sulfate (Morphine 2 Mg/Ml Syringe) 2 mg IVPUSH ONETIME ONE Stop: 12/28/20 10:01 Last Admin: 12/28/20 10:07 Dose: 2 mg Documented by: Morphine Sulfate (Morphine 2 Mg/Ml Syringe) 2 mg IVPUSH ONETIME ONE Stop: 12/29/20 10:16 Last Admin: 12/29/20 10:49 Dose: 2 mg Documented by: Morphine Sulfate (Morphine 2 Mg/Ml Syringe) 2 mg IVPUSH ONETIME ONE Stop: 12/30/20 14:03 Last Admin: 12/30/20 14:18 Dose: 2 mg Documented by: Vancomycin HCl (Pharmacy To Dose - Vancomycin) 1 dose .XX ASDIRECTED [facility]
== END 2020-12-31 12:30 | disposition home or self-care (01) | DRG 603 ==
LOC: MW.ED 11:43 → MW.MS 15:36
PROVIDERS: ADMIT Internal Medicine; ATTEND Internal Medicine
PROC: 0H9FXZZ Drainage of Right Hand Skin, External Approach (ICD-10-PCS; principal; 2020-12-27)
DX: L03.113 Cellulitis of right upper limb (principal); L02.511 Cutaneous abscess of right hand; I10 Essential (primary) hypertension; F41.9 Anxiety disorder, unspecified; Z90.49 Acquired absence of other specified parts of digestive tract; Z20.822 Contact with and (suspected) exposure to COVID-19
CPT/HCPCS: 0240U; 10060; 36415; 73201-26-RT; 73201-RT; 80048; 80053; 80202; 82550; 83605; 85025; 86140; 87040; 96365; 96366; 96375; 99284; 99284-25; A9270-GY; J2270; J2543; J3370; J7030; Q9967

== ENCOUNTER 2022-01-24 09:26 | Emergency (ER) | payer BC, MEDICAID ==
[2022-01-24] MEDS ORDERED: Sodium Chloride 0.9% 2.5 ML Syringe FLUSH PRN (09:48)
[2022-01-24] MEDS ORDERED: Sodium Chloride 0.9% 10 ML Syringe FLUSH PRN (09:48)
[2022-01-24] MEDS ORDERED: Ondansetron 4 MG/2 ML SDV IVPUSH ONE ×2 (09:49→11:49)
[2022-01-24] MEDS ORDERED: Ampicillin/Sulbactam Na 3 GM in Sodium Chloride 0.9% 100 ML IV ONE ×2 (09:49→11:00)
[2022-01-24] MEDS ORDERED: Morphine 4 MG/ML VIAL IVPUSH ONE ×2 (09:49→11:49)
[2022-01-24] MEDS ORDERED: Dexamethasone 10 MG/ML SDV IVPUSH ONE (09:49)
[2022-01-24 10:34] LABS: BLOOD UREA NITROGEN,BUN 9 mg/dL (7.0-18.0); CARBON DIOXIDE,CO2 26.2 mmol/L (21.0-32.0); CHLORIDE,CL 99 mmol/L (98-107); GLUCOSE RANDOM 136 mg/dL (74-106); POTASSIUM,K 3.1 mmol/L (3.5-5.1); SODIUM,NA 133 mmol/L (136-148)
[2022-01-24] MEDS ORDERED: Iopamidol 755 MG/ML 500 ML Multipack Bottle IVPUSH STA (11:53)
[2022-01-24 18:46] VITALS: BP 111/74; PULSE 96
== END 2022-01-24 14:20 | disposition home or self-care (01) ==
LOC: MW.ED 09:26
DX: J36 Peritonsillar abscess (principal); I10 Essential (primary) hypertension
CPT/HCPCS: 36415; 70491; 80048; 85025; 93005; 96365; 96375; 96376; 99284; J0295; J1100; J2270; J2405; J3490

== ENCOUNTER 2023-07-17 04:42 | Emergency (ER) | payer MEDICAID ==
[2023-07-17] MEDS ORDERED: Ondansetron 4 MG/2 ML SDV IVPUSH ONE (05:01)
[2023-07-17] MEDS ORDERED: Sodium Chloride 0.9% 1,000 ML IV SCH ×2 (05:15→06:45)
[2023-07-17] MEDS ORDERED: Naloxone 0.4 MG/ML SDV IVPUSH PRN (05:23)
[2023-07-17] MEDS ORDERED: Morphine 2 MG/ML SYRINGE IVPUSH ONE (05:23)
[2023-07-17 05:34] LABS: BASOPHILS ABSOLUTE AUTO 0.03 K/uL (0.00-0.20); BASOPHILS PERCENT AUTO 0.5 % (0.0-1.0); EOSINOPHILS ABSOLUTE AUTO 0.02 K/uL (0.00-0.45); EOSINOPHILS PERCENT AUTO 0.4 % (0.0-6.0); HEMATOCRIT 42.8 % (42.0-52.0); IMMATURE GRAN ABSOLUTE AUTO 0.03 K/uL (0.00-0.05); IMMATURE GRAN PERCENT AUTO 0.5 % (0.0-0.4); LYMPHOCYTES ABSOLUTE AUTO 1.29 K/uL (1.00-4.80); LYMPHOCYTES PERCENT AUTO 23.5 % (24.0-44.0); MEAN CORPUSCULAR HEMOGLOBIN 28.6 pg (28.0-32.0); MEAN CORPUSCULAR VOLUME 81.7 fL (83.0-99.0); MEAN PLATELET VOLUME 8.7 fL (9.4-12.4); MONOCYTES ABSOLUTE AUTO 0.67 K/uL (0.00-0.80); MONOCYTES PERCENT AUTO 12.2 % (0.0-8.0); NEUTROPHILS ABSOLUTE AUTO 3.5 K/uL (1.8-7.7); NEUTROPHILS PERCENT AUTO 62.9 % (41.0-71.0); PLATELET COUNT,PLT 305 K/uL (150-400); RED BLOOD CELL COUNT 5.24 M/uL (4.52-5.90)
[2023-07-17] MEDS ORDERED: Pantoprazole 40 MG in Sodium Chloride 0.9% 10 ML IVPUSH ONE (05:42)
[2023-07-17 05:55] LABS: ALBUMIN 3.8 g/dL (3.4-5.0); BILIRUBIN TOTAL 0.4 mg/dL (0.2-1.0); CALCIUM 8.5 mg/dL (8.5-10.1); CARBON DIOXIDE,CO2 27.4 mmol/L (21.0-32.0); CREATININE 0.9 mg/dL (0.8-1.3); EST CRCL DRUG DOSING (CG) 133.17 mL/min; POTASSIUM,K 3.6 mmol/L (3.5-5.1); PROTEIN TOTAL,TP 7.5 g/dL (6.4-8.2)
[2023-07-17] MEDS ORDERED: Iopamidol 755 MG/ML 500 ML Multipack Bottle IVPUSH ONE (06:11)
[2023-07-17] MEDS ORDERED: diphenhydrAMINE 50 MG/ML SDV IVPUSH ONE (06:40)
[2023-07-17] MEDS ORDERED: Metoclopramide 10 MG/2 ML SDV IVPUSH ONE (06:40)
[2023-07-17] MEDS ORDERED: Sodium Chloride 0.9% 1,000 ML IV ONE (07:31)
[2023-07-17 09:16] VITALS: BP 138/94; PULSE 72
== END 2023-07-17 09:15 | disposition home or self-care (01) ==
LOC: MW.ED 04:42
DX: K29.70 Gastritis, unspecified, without bleeding (principal)
CPT/HCPCS: 36415; 74177; 80053; 83690; 84484; 85025; 86850; 86900; 86901; 93005; 96361; 96374; 96375; 99284; C9113; J1200; J2270; J2405; J2765; J3490; J7030; Q9967; 93010; 99283

== ENCOUNTER 2024-03-04 17:05 | Emergency (ER) | payer MEDICAID ==
[2024-03-04] MEDS: Ondansetron 4 MG/2 ML SDV IVPUSH ONE (17:26)
[2024-03-04] MEDS: Morphine 4 MG/ML Syringe IVPUSH ONE (17:26)
[2024-03-04] MEDS: Sodium Chloride 0.9% 2.5 ML Syringe FLUSH PRN (17:27)
[2024-03-04] MEDS: Sodium Chloride 0.9% 10 ML Syringe FLUSH PRN (17:27)
[2024-03-04 17:28] LABS: BASOPHILS PERCENT AUTO 0.9 % (0.0-1.0); EOSINOPHILS ABSOLUTE AUTO 0.27 K/uL (0.00-0.45); EOSINOPHILS PERCENT AUTO 2.3 % (0.0-6.0); HEMATOCRIT 48.3 % (42.0-52.0); HEMOGLOBIN 17.1 g/dL (14.0-18.0); IMMATURE GRAN ABSOLUTE AUTO 0.07 K/uL (0.00-0.05); IMMATURE GRAN PERCENT AUTO 0.6 % (0.0-0.4); LYMPHOCYTES ABSOLUTE AUTO 4.62 K/uL (1.00-4.80); LYMPHOCYTES PERCENT AUTO 39.5 % (24.0-44.0); MEAN CORPUSCULAR HEMOGLOBIN 28.3 pg (28.0-32.0); MEAN CORPUSCULAR HGB CONC 35.4 g/dL (32.0-36.0); MEAN PLATELET VOLUME 8.7 fL (9.4-12.4); MONOCYTES ABSOLUTE AUTO 0.87 K/uL (0.00-0.80); MONOCYTES PERCENT AUTO 7.4 % (0.0-8.0); NEUTROPHILS ABSOLUTE AUTO 5.77 K/uL (1.80-7.70); NEUTROPHILS PERCENT AUTO 49.3 % (41.0-71.0); PLATELET COUNT,PLT 419 K/uL (150-400); RED BLOOD CELL COUNT 6.04 M/uL (4.52-5.90)
[2024-03-04] MEDS: Sodium Chloride 0.9% 1,000 ML IV ONE (17:28)
[2024-03-04] MEDS: Iopamidol 755 MG/ML 500 ML Multipack Bottle IVPUSH STA (17:52)
[2024-03-04 17:55] LABS: A/G RATIO 1.2 (0.9-1.6); ALANINE AMINOTRANSFERASE,ALT 37 IU/L (14-63); ALBUMIN 4.2 g/dL (3.4-5.0); ALKALINE PHOSPHATASE 104 U/L (46-116); ASPARTATE AMNIOTRANSFERASE,AST 20 IU/L (15-37); BILIRUBIN TOTAL 0.5 mg/dL (0.2-1.0); BLOOD UREA NITROGEN,BUN 18 mg/dL (7.0-18.0); CALCIUM 9.4 mg/dL (8.5-10.1); CHLORIDE,CL 101 mmol/L (98-107); CREATININE 1.4 mg/dL (0.8-1.3); EST CRCL DRUG DOSING (CG) 84.81 mL/min; GLUCOSE RANDOM 125 mg/dL (74-106); INR 1.06 (0.86-1.11); LIPASE 50 U/L (16-77); POTASSIUM,K 4.2 mmol/L (3.5-5.1); PROTEIN TOTAL,TP 7.8 g/dL (6.4-8.2); SODIUM,NA 137 mmol/L (136-148)
[2024-03-04 17:56] LABS: ESTIMATED GFR 68 mL/min (>60); ETHANOL BLOOD MEDICAL < 3.0 mg/dL
[2024-03-04] MEDS: Diphtheria,Pertussis(Acell),Tetanus Vaccine 0.5 ML Syringe IM ONE (18:01)
[2024-03-04] MEDS: HYDROmorphone 1 MG/ML Syringe IVPUSH ONE ×2 (18:06→19:05)
[2024-03-04] MEDS: Lidocaine 2% Viscous Solution 15 ML UD TOP PRN (19:53)
[2024-03-04] MEDS: Ketorolac 30 MG/ML SDV IVPUSH ONE (19:54)
[2024-03-05 02:39] VITALS: BP 142/84; PULSE 64
== END 2024-03-04 21:56 | disposition home or self-care (01) ==
LOC: MW.ED 17:05
DX: S92.514A Nondisplaced fracture of proximal phalanx of right lesser toe(s), initial encounter for closed fracture (principal); S42.001A Fracture of unspecified part of right clavicle, initial encounter for closed fracture; Z23 Encounter for immunization; V86.56XA Driver of dirt bike or motor/cross bike injured in nontraffic accident, initial encounter; Y93.89 Activity, other specified
CPT/HCPCS: 29515; 36415; 70450; 71045; 71260; 72125; 73030; 73630; 74177; 80053; 80307; 83690; 85025; 85610; 86850; 86900; 86901; 90471; 90715; 96361; 96374; 96375; 99284; A9270; J1170; J1885; J2270; J2405; J3490; J7030; Q9967

== ENCOUNTER 2024-03-12 06:44 | Day surgery (SDC) | payer OTHER, MEDICAID ==
[~2024-03-12 06:44] MED LIST: Bupivacaine 0.5% 30 ML SDV ONE; Lidocaine 2% 5 ML SDV ONE; Midazolam 1 MG/ML 2 ML SDV ONE; fentaNYL 100 MCG/2 ML SDV ONE
[2024-03-12] MEDS ORDERED: propofoL 100 ML ONE (06:52)
[2024-03-12] MEDS ORDERED: Albuterol 0.083% 2.5 MG/3 ML Neb Soln NEB PRN (06:57)
[2024-03-12] MEDS ORDERED: HYDROmorphone 1 MG/ML Syringe IVPUSH PRN (06:57)
[2024-03-12] MEDS ORDERED: Morphine 2 MG/ML SYRINGE IVPUSH PRN (06:57)
[2024-03-12] MEDS ORDERED: fentaNYL 50 MCG/ML SDV IVPUSH PRN (06:57)
[2024-03-12] MEDS ORDERED: Naloxone 0.4 MG/ML SDV IVPUSH PRN (06:57)
[2024-03-12] MEDS ORDERED: Ondansetron 4 MG/2 ML SDV IVPUSH PRN (06:57)
[2024-03-12] MEDS ORDERED: Metoclopramide 10 MG/2 ML SDV IVPUSH PRN (06:57)
[2024-03-12] MEDS ORDERED: droPERidol 5 MG/2 ML SDV IVPUSH PRN (06:57)
[2024-03-12] MEDS: Lactated Ringers 1,000 ML IV SCH (07:10)
[2024-03-12] MEDS ORDERED: Scopalamine 1mg/3day Transdermal Patch ONE (07:17)
[2024-03-12] MEDS ORDERED: Ondansetron 4 MG/2 ML SDV ONE ×2 (07:18→07:24)
[2024-03-12] MEDS ORDERED: Rocuronium Bromide 50 MG/5 ML Syringe ONE ×2 (07:24)
[2024-03-12] MEDS ORDERED: fentaNYL 100 MCG/2 ML SDV ONE (07:30)
[2024-03-12] MEDS ORDERED: ceFAZolin 2 GM Vial ONE (07:30)
[2024-03-12] MEDS ORDERED: Bupivacaine 0.5%/EPINEPHrine 1:200,000 30 ML SDV ONE (07:33)
[2024-03-12] MEDS ORDERED: Sugammadex Sodium 200 MG/2 ML VIAL IV ONE (07:36)
[2024-03-12] MEDS ORDERED: Ketorolac 30 MG/ML SDV ONE (07:36)
[2024-03-12] MEDS ORDERED: ceFAZolin 2 GM in Sodium Chloride 0.9% 50 ML IV ONE (08:00)
[2024-03-12] MEDS ORDERED: Esmolol 100 MG/10 ML SDV ONE ×2 (08:48→09:25)
[2024-03-12] MEDS ORDERED: propofoL 50 ML ONE (09:37)
[2024-03-12 12:21] VITALS: BP 149/75; PULSE 95
== END 2024-03-12 12:30 | disposition home or self-care (01) ==
LOC: MW.SDS 06:44
PROVIDERS: ATTEND Orthopaedic Surgery
DX: S42.001A Fracture of unspecified part of right clavicle, initial encounter for closed fracture (principal); F17.200 Nicotine dependence, unspecified, uncomplicated; V89.2XXA Person injured in unspecified motor-vehicle accident, traffic, initial encounter
CPT/HCPCS: 23515; 64415; 76000; A9270; J0131; J0665; J0690; J1885; J2250; J2405; J2704; J3010; J3490; J7120; C1713; C1776